=== PATIENT | female | born 1970 | race Caucasian/White ===

== ENCOUNTER 2023-07-11 09:25 | Emergency (ER) | payer OTHER, SELFPAY ==
[2023-07-11 09:33] VITALS: BP 159/100; PULSE 89; RESP 16; TEMP 36.8; O2SAT 96; BMI 39.2
--- NOTE | 2023-07-11 09:38 | XR_ITS ---
[facility] [place] [id number] Patient Name: DESTINY NAVARRO MRN: [id number] date: 1970 Sex: F Assigned Patient Location: ER Current Patient Location: ER Accession/Order Number: [id number] Exam Date: 07/11/2023 09:42 Report Date: 07/11/2023 10:03 At the request of: JERRY ROLLINS Procedure: XR knee RT 3V EXAM: XR knee RT 3V HISTORY: Right knee pain; technologist notes state atraumatic anterior and medial right knee pain since last night. COMPARISON: None. TECHNIQUE: AP, lateral and oblique views of the right knee performed. FINDINGS: The bony alignment and mineralization are within normal limits. There is no fracture. There is no osseous destruction or periostitis. Mild degenerative changes lateral compartment of the femoral-tibial articulation with small marginal osteophyte. Moderate degenerative changes medial compartment of the femoral-tibial articulation with narrowing of the joint space and marginal osteophyte. Moderate degenerative changes at the patellofemoral articulation with joint space narrowing, marginal osteophyte posterior aspect of the patella and hypertrophic changes of the trochlea. Small enthesophytes at the patellar attachment of the quadriceps and patellar tendons. There is a moderately large joint effusion at the knee. There is no soft tissue abnormality. XR/XR knee RT 3V IMPRESSION: There is no acute process. There is no fracture. Tricompartmental degenerative changes as described in the body the report. Small patellar enthesophytes at the attachment of the quadriceps and patellar tendons. Moderately large joint effusion at the knee. Electronically authenticated by: GIGI ALEGRE Date: 07/11/2023 10:03
[2023-07-11 09:43] VITALS: O2SAT 98
--- NOTE | 2023-07-11 10:19 | ED.LOWEXI1 ---
HPI - Extremity Injury (Lower) General Chief Complaint: Extremity Injury, Lower Stated Complaint: LOWER EXTREMITY INJURY - R KNEE Time Seen by Provider: 07/11/23 10:19 Source: patient Mode of arrival: walk-in Limitations: no limitations History of Present Illness HPI Narrative: This document has been composed with a new electronic medical record and dragging voice recognition system. This document may not fully inaccurately reflect the entirety of the patient encounter.this patient's here with complaint of pain in her right knee. She has not had previous surgery on the knee. She says it cracks or pops and because of that she takes Osteo Bi-Flex. She has never seen an orthopedic doctor. She does not have a new injury or change in activity. No other joints are problematic swollen or tender. She's not been running a fever.does not have any other complaints today. She was seen by the nursing staff and triaged to x-ray Related Data Home Medications Medication Instructions Recorded Confirmed No Known Home Medications 07/11/23 07/11/23 Allergies Allergy/AdvReac Type Severity Reaction Status Date / Time No Known Drug Allergies Allergy Verified 07/11/23 09:33 PFSH PFSH Social History Smoking status: Never smoker Exam Narrative Exam Narrative: awake alert vital signs are stable she is afebrile. Problem focused examination. Extremities shows the right need to have a small amount of effusion. She does have no instability of the joint but has diffuse tenderness both medial lateral and with patellar ballottement. Neurovascular examination distal extremity is normal. There is no indication of skin cellulitis or infectious process. The quadriceps and the soft tissues distal to the knee are completely normal. There is no neuropathy at this time. Her other joints are asymptomatic. Constitutional Vital Signs, click to edit/add: Last Vital Signs Temp 98.2 F 07/11/23 09:33 Pulse 89 07/11/23 09:33 Resp 16 07/11/23 09:33 BP 159/100 H 07/11/23 09:33 Pulse Ox 98 07/11/23 09:43 O2 Del Method Room Air 07/11/23 09:43 Course Vital Signs Vital signs: Vital Signs Temperature 98.2 F 07/11/23 09:33 Pulse Rate 89 07/11/23 09:33 Respiratory Rate 16 07/11/23 09:33 Blood Pressure 159/100 H 07/11/23 09:33 Pulse Oximetry 96 07/11/23 09:33 Oxygen Delivery Method Room Air 07/11/23 09:33 Temperature 98.2 F 07/11/23 09:33 Pulse Rate 89 07/11/23 09:33 Respiratory Rate 16 07/11/23 09:33 Blood Pressure 159/100 H 07/11/23 09:33 Pulse Oximetry 98 07/11/23 09:43 Oxygen Delivery Method Room Air 07/11/23 09:43 MDM - Extremity Injury (Lower) MDM Narrative Medical decision making narrative: x-rays the knee confirm moderate degenerative changes and three compartments of the knee per the radiologist. No acute fractures are noted. At this stage would place her in an immobilizer revising ice anti-inflammatories. I do not need leading that she needs aspiration of the joint at this time. She was advised to follow-up with her local orthopedist at Center program. I will give her a work note for Thursday so she can be off this for at least 3-5 days Discharge Plan Discharge Chief Complaint: Extremity Injury, Lower Clinical Impression: Degenerative arthritis of right knee Patient Disposition: Home, Self-Care Time of Disposition Decision: 10:27 Prescriptions / Home Meds: No Action No Known Home Medications Additional Instructions: Anaprox/knee immobilizer/ice/follow-up with your network orthopedist next week/off work Thursday Stand Alone Forms: Portal Instructions Referrals: Physician,Non-Staff, MD [Primary Care Provider] - 1 week
== END 2023-07-11 11:08 | disposition home or self-care (01) ==
PROVIDERS: Emergency Provider Emergency Medicine Emergency Medical Services
DX: M17.11 Unilateral primary osteoarthritis, right knee (principal)
CPT/HCPCS: 73562; 99283

== ENCOUNTER 2025-02-13 11:25 | Outpatient (OUT) | payer OTHER, SELFPAY ==
[2025-02-13 12:07] LABS: Basophils Percent Auto 0.4 % (0.2-2.0); Eosinophils Absolute Auto 0.2 10^3/uL (0.0-0.7); Hemoglobin 14.1 g/dL (12.0-16.0); Immature Granulocytes Abs Auto 0.03 10^3/uL (0.00-0.03); Immature Granulocytes Pct Auto 0.4 % (0.0-0.5); Lymphocytes Absolute Auto 2.7 10^3/uL (1.2-3.8); Lymphocytes Percent Auto 36.2 % (20.5-60.0); Mean Corpuscular HGB Conc 35.3 g/dL (29.9-35.2); Mean Corpuscular Hemoglobin 30.3 pg (26.7-34.0); Mean Platelet Volume 9.3 fL (9.5-13.5); Monocytes Absolute Auto 0.4 10^3/uL (0.3-0.8); Monocytes Percent Auto 4.7 % (1.7-12.0); Neutrophils Absolute Auto 4.2 10^3/uL (1.4-6.5); Neutrophils Percent Auto 56.3 % (43.0-75.0); Platelet Count 315 10^3/uL (150-450); Red Blood Count 4.65 10^6/uL (4.20-5.40); Red Cell Distribution Width 11.7 % (11.0-15.0); White Blood Count 7.5 10^3/uL (4.0-11.0)
[2025-02-13 12:26] LABS: Estimated Average Glucose 194 mg/dL; Glycohemoglobin A1C 8.4 % (4.5-6.2)
[2025-02-13 12:30] LABS: Alanine Aminotransferase 20 U/L (14-59); Albumin Globulin Ratio 1.1; Albumin Level 3.6 g/dL (3.4-5.0); Alkaline Phosphatase 76 U/L (46-116); Anion Gap 10.5; Aspartate Amino Transferase 11 U/L (15-37); BUN Creatinine Ratio 9.2; Bilirubin Total 1.1 mg/dL (0.2-1.0); Calcium 9.3 mg/dL (8.5-10.1); Carbon Dioxide 32.2 mmol/L (21.0-32.0); Chloride 105 mmol/L (98-107); Chol HDL Ratio 5.5; Cholesterol 241 mg/dL (<=200); Estimated GFR (African America >60 (>=60 mL/min/1.73m^2); Estimated GFR (Non-African Ame >60 (>=60 mL/min/1.73m^2); Free T3 2.74 pg/mL (2.18-3.98); Globulin 3.3 g/dL; Glucose 133 mg/dL (74-106); HDL Cholesterol 44 mg/dL (40-60); Potassium 4.7 mmol/L (3.5-5.1); Sodium 143 mmol/L (136-145); Thyroid Stimulating Hormone 5.631 uIU/mL (0.358-3.740); Total Protein 6.9 g/dL (6.4-8.2); Triglycerides 190 mg/dL (<=150)
[2025-02-14 03:07] LABS: Insulin 11.8 uIU/mL (2.6-24.9)
[2025-02-14 14:09] LABS: Thyroglobulin Antibody 671.3 IU/mL (0.0-0.9); Thyroid Peroxidase (TPO) Ab 116 IU/mL (0-34)
[2025-02-14 15:34] LABS: Erythrocyte Sedimentation Rate 20 mm/hr (<=30)
== END 2025-02-13 11:26 | disposition home or self-care (01) ==
LOC: LAB 11:31
PROVIDERS: PCP Family Medicine; Visit Provider Family Medicine
DX: Z00.00 Encounter for general adult medical examination without abnormal findings (principal)
CPT/HCPCS: 36415; 80053; 80061; 83036; 83525; 84436; 84443; 84481; 85025; 85652; 86376; 86800

== ENCOUNTER 2025-02-16 18:19 | Inpatient (IN) | payer OTHER, SELFPAY ==
[2025-02-16] VITALS (10 sets, daily range): BP systolic 140–200; BP diastolic 85–116; PULSE 73–96; TEMP 36.8; O2SAT 90–99; BMI 38.7
--- OUTSIDE RECORDS SUMMARY | 2025-02-16 18:31 | XMS_ITS ---
Author Organization [facility] Care Team Providers Care Pipe Changer Name Role Phone NO PCP, NO PCP Primary Care Unavailable NO PCP, NO PCP Primary Care Unavailable Purpose PROBLEMS DATE TYPE CONDITION / CODE ATTENDING STATUS RADHA E 01/31/2025 Unknown Laceration witho ut foreign body of other part of head, initial encounter / S01.81XA(ICD-10) NA Active [facility] 01/31/2025 Unknown Facial Laceratio n / FREETEXT(AOF) NA Active [facility] 10/20/2024 Unknown Drug Test / UNK(Unknown) NA Acti ve [facility] PROCEDURES No Procedure Records Found VITAL SIGNS No Vital Signs Records Found RESULTS No Result Records Found ALLERGIES DATE TYPE / CODE NAME / CODE REACTION SEVERITY SOURCE Drug Class/049729691(SNO MED CT) NO KNOWN ALLERGIES [facility] ENCOUNTERS ADMIT/DISCHARGE ACCOUNT NUMBER ADMITTING ENCOUNTER CLASS LOCATION SOURCE 01/31/2025/ 5 [id number] Emergency Building:PFM_ EDRoom: H4Bed: H4 [facility] 10/20/2024/ 4 [id number] Emergency Building:PF_ ED [facility] FUNCTIONAL STATUS No Functional Status Records Found EQUIPMENT No Equipment Records Found PAYERS ENCOUNTER GUARANTOR PAYER SUBSCRIBER SOURCE 10/20/2024 DESTINY NAVARRODOB: [address] [address]Eve: (HP) Primary Insurance:[employer] Number: [id number] sunshine Date:2019-04-16 DESTINY APODACAB: [id number] [address] [address]Pal: (WP) [facility] SOCIAL HISTORY No Social History Records Found FAMILY HISTORY No Family History Records Found ADVANCE DIRECTIVES No Advanced Directives Records Found INFORMATION SOURCE DATE CREATED AUTHOR AUTHOR'S TRA [facility] 02/16/2025 [facility]
--- NOTE | 2025-02-16 18:34 | ED_ITS ---
HPI HPI - General Adult General Chief complaint: Dizziness Stated complaint: NAUSEA, DIZZINESS, HIGH BP Time Seen by Provider: 02/16/25 18:26 Source: patient Mode of arrival: Wheelchair Limitations: no limitations History of Present Illness HPI narrative: Patient is a 55-year-old female who presents to the emergency department for dizziness, nausea that started today. She describes a sensation of herself and the room spinning. She denies visual loss. She states she is more comfortable when her eyes are closed. She denies fevers. Her family member at bedside states that she was recently treated for influenza. She states she occasionally has nasal congestion in the mornings but has not had any persistent significant upper respiratory symptoms. No medications taken prior to arrival today. She states her blood pressure has been high today. She has had no vomiting or diarrhea. No chest pain or shortness of breath. No falls or injuries. She states she had a fall with a small laceration above her right eyebrow 2 weeks ago and was seen at the [place] emergency department. Her family member states that they put Steri-Strips on her forehead but they did not check check her . Related Data Home Medications ?Medication ?Instructions ?Recorded ?Confirmed No Known Home Medications 02/16/25 02/16/25 Allergies Allergy/AdvReac Type Severity Reaction Status Date / Time No Known Drug Allergies Allergy Verified 07/11/23 09:33 Opioid HPI Opioid Management Most Recent Opioid Data: Last Pain Scale 9 07/11/23 09:42 07/11/23 Review of Systems ROS Constitutional Denies: fever or chills Ears, nose, mouth, and throat Denies: throat pain or nasal congestion Respiratory Denies: shortness of breath Gastrointestinal Reports: nausea; Denies: vomiting Musculoskeletal Denies: back pain or neck pain Integumentary/Breast Denies: rash Neurological Reports: dizziness; Denies: headache, numbness in extremities or weakness in extremities Hematologic/Lymphatic Denies: easy bruising or easy bleeding PFSH PFSH Social History Smoking status: Never smoker Exam Narrative Exam Narrative: Gen.: Awake, alert, in no distress Head: Normocephalic, atraumatic ENT: Dry mucous membranes, bilateral TMs are clear Respiratory: No respiratory distress, lungs clear bilaterally Cardio: Regular rate and rhythm Gastrointestinal: Abdomen is soft, nondistended and nontender to palpation Extremities: Moves extremities equally Psych: Normal mood and affect Neuro: No focal neuro deficit Skin: Warm, dry, intact Constitutional Vital Signs, click to edit/add: Last Vital Signs Temp 98.2 F 02/16/25 18:28 Pulse 96 H 02/16/25 21:16 Resp 16 02/16/25 21:16 BP 143/87 H 02/16/25 21:16 Pulse Ox 96 02/16/25 21:16 O2 Del Method Room Air 02/16/25 18:46 Course Vital Signs Vital signs: Vital Signs Temperature 98.2 F 02/16/25 18:28 Pulse Rate 85 02/16/25 18:28 Respiratory Rate 18 02/16/25 18:28 Blood Pressure 178/98 H 02/16/25 18:28 Pulse Oximetry 99 02/16/25 18:28 Oxygen Delivery Method Room Air 02/16/25 18:28 Temperature 98.2 F 02/16/25 18:28 Pulse Rate 96 H 02/16/25 21:16 Respiratory Rate 16 02/16/25 21:16 Blood Pressure 143/87 H 02/16/25 21:16 Pulse Oximetry 96 02/16/25 21:16 Oxygen Delivery Method Room Air 02/16/25 18:46 Medical Decision Making MDM Narrative Medical decision making narrative: Patient was initially medicated with IV fluids, Solu-Medrol, Zofran, Antivert. She continued to have labile blood pressures and was given labetalol, Vasotec. Her blood pressure improved for a short period of time but worsened and she was given additional hydralazine in addition to Valium for continued dizziness. CT of the brain is unremarkable, EKG is also unremarkable and laboratory studies reviewed and noted showing possible mild dehydration. Lactic acid was elevated and will be repeated. On reevaluation by attending physician, blood pressure is 143/87, however the patient still feels significantly dizzy and she will be admitted for observation for management of her blood pressure and dizziness. She is stable at this time. SHARED APC VISIT, PHYSICIAN ATTESTATION: [id number] I performed a substantive part of the MDM during the patient?s E/M visit. I personally evaluated and examined the patient. I personally made or approved the documented management plan and acknowledge its risk of complications. Medical Records Medical records reviewed: Yes I reviewed the patient's medical records Lab Data Lab results reviewed: Yes I reviewed the patient's lab results Labs: Lab Results 02/16/25 02/16/25 Range/Units 18:42 18:49 WBC 11.2 H (4.0-11.0) 10^3/uL RBC 5.03 (4.20-5.40) 10^6/uL Hgb 15.1 (12.0-16.0) g/dL Hct 43.4 (36.0-48.0) % MCV 86.3 (81.0-99.0) fL MCH 30.0 (26.7-34.0) pg MCHC 34.8 (29.9-35.2) g/dL RDW 11.8 (11.0-15.0) % Plt Count 350 (150-450) 10^3/uL MPV 9.6 (9.5-13.5) fL Neut % (Auto) 73.5 (43.0-75.0) % Lymph % (Auto) 21.6 (20.5-60.0) % [place] % (Auto) 3.9 (1.7-12.0) % Eos % (Auto) 0.4 L (0.9-7.0) % Baso % (Auto) 0.2 (0.2-2.0) % Neut # (Auto) 8.2 H (1.4-6.5) 10^3/uL Lymph # (Auto) 2.4 (1.2-3.8) 10^3/uL [place] # (Auto) 0.4 (0.3-0.8) 10^3/uL Eos # (Auto) 0.1 (0.0-0.7) 10^3/uL Baso # (Auto) 0.0 (0.0-0.1) 10^3/uL Abs Immat Gran (auto) 0.04 H (0.00-0.03) 10^3/uL Imm/Tot Granulo (auto) 0.4 (0.0-0.5) % PT 10.9 (9.0-11.6) sec INR 1.03 Sodium 138 (136-145) mmol/L Potassium 4.5 (3.5-5.1) mmol/L Chloride 98 (98-107) mmol/L Carbon Dioxide 29.1 (21.0-32.0) mmol/L Anion Gap 15.4 BUN 14.0 (7.0-18.0) mg/dL Creatinine 0.81 (0.55-1.02) mg/dL Est GFR ( Amer) >60 (>=60 mL/min/1.73m^2) Est GFR (Non-Af Amer) >60 (>=60 mL/min/1.73m^2) BUN/Creatinine Ratio 17.3 Glucose 213 H (74-106) mg/dL Lactate 2.9 H* (0.4-2.0) mmol/L Calcium 9.3 (8.5-10.1) mg/dL Magnesium 1.6 L (1.8-2.4) mg/dL Total Bilirubin 1.3 H (0.2-1.0) mg/dL AST 24 (15-37) U/L ALT 24 (14-59) U/L Alkaline Phosphatase 84 (46-116) U/L Troponin I High Sens <4.0 L (4.0-51.3) pg/mL Total Protein 7.6 (6.4-8.2) g/dL Albumin 3.8 (3.4-5.0) g/dL Globulin 3.8 g/dL Albumin/Globulin Ratio 1.0 TSH 3.709 (0.358-3.740) uIU/mL Urine Color Lt. yellow (YELLOW) Urine Clarity Clear (CLEAR) Urine pH 7.0 (5.0-9.0) Ur Specific [place] 1.020 (1.005-1.025) Urine Protein 30 A (NEG/TRACE) mg/dL Urine Glucose (UA) Negative (NEGATIVE) mg/dL Urine Ketones 40 A (NEGATIVE) mg/dL Urine Occult Blood Negative (NEGATIVE) Urine Nitrite Negative (NEGATIVE) Urine Bilirubin Negative (NEGATIVE) Urine Urobilinogen 0.2 (0.2-1.0) EU/dL Ur Leukocyte Esterase Negative (NEGATIVE) Urine RBC None seen (0-2) #/HPF Urine WBC 2-5 A (NONE SEEN) #/HPF Ur Squamous Epith Cells Few A (NONE/RARE) #/LPF Urine Crystals None seen (None Seen) #/HPF Urine Bacteria Trace A (NONE SEEN) #/HPF Urine Casts None seen (NONE SEEN) #/LPF Urine Mucus None seen (NONE SEEN) Ur Culture Indicated? No Imaging Data CT scan - head: Attestation: I have reviewed the pertinent imaging results. ECG Data Attestation: I personally reviewed and interpreted this ECG as follows: (Normal sinus rhythm at a rate of 80, no acute ST elevation or ectopy. EKG reviewed by attending physician) Discharge Plan Discharge Chief Complaint: Dizziness Clinical Impression: Dizziness, Hypertension, Nausea Patient Disposition: Admitted as Observation Time of Disposition Decision: 21:28 Condition: Good
[2025-02-16 19:08] LABS: Basophils Percent Auto 0.2 % (0.2-2.0); Eosinophils Absolute Auto 0.1 10^3/uL (0.0-0.7); Eosinophils Percent Auto 0.4 % (0.9-7.0); Hematocrit 43.4 % (36.0-48.0); Hemoglobin 15.1 g/dL (12.0-16.0); Immature Granulocytes Abs Auto 0.04 10^3/uL (0.00-0.03); Immature Granulocytes Pct Auto 0.4 % (0.0-0.5); Lymphocytes Absolute Auto 2.4 10^3/uL (1.2-3.8); Lymphocytes Percent Auto 21.6 % (20.5-60.0); Mean Corpuscular HGB Conc 34.8 g/dL (29.9-35.2); Mean Corpuscular Volume 86.3 fL (81.0-99.0); Mean Platelet Volume 9.6 fL (9.5-13.5); Monocytes Absolute Auto 0.4 10^3/uL (0.3-0.8); Monocytes Percent Auto 3.9 % (1.7-12.0); Neutrophils Absolute Auto 8.2 10^3/uL (1.4-6.5); Neutrophils Percent Auto 73.5 % (43.0-75.0); Platelet Count 350 10^3/uL (150-450); Red Blood Count 5.03 10^6/uL (4.20-5.40); Red Cell Distribution Width 11.8 % (11.0-15.0); White Blood Count 11.2 10^3/uL (4.0-11.0)
[2025-02-16] MEDS: METHYLPREDNISOLONE SOD SUCC PF 125 MG/2 ML VIAL IVP (19:09)
[2025-02-16] MEDS: ONDANSETRON PF 4 MG/2 ML VIAL IV ×2 (19:09→22:17)
[2025-02-16] MEDS: MECLIZINE HCL 12.5 MG TABLET 25 MG PO (19:10)
[2025-02-16] MEDS: 0.9 % SODIUM CHLORIDE 1,000 ML 999 ML IV (19:11)
[2025-02-16 19:15] LABS: Bilirubin Urine NEGATIVE (NEGATIVE); Blood Urine NEGATIVE (NEGATIVE); Clarity Urine CLEAR (CLEAR); Color Urine LT. YELLOW (YELLOW); Glucose Urine UA NEGATIVE (NEGATIVE); Ketones Urine 40 mg/dL (NEGATIVE); Leukocyte Esterase Urine NEGATIVE (NEGATIVE); Nitrite Urine NEGATIVE (NEGATIVE); Protein Urine 30 mg/dL (NEG/TRACE); Urobilinogen Urine 0.2 EU/dL (0.2-1.0)
[2025-02-16 19:18] LABS: Bacteria Urine TRACE #/HPF (NONE SEEN); Cast Seen? NONE SEEN #/LPF (NONE SEEN); Crystals Seen? None Seen #/HPF (None Seen); Mucus Urine NONE SEEN (NONE SEEN); RBC Urine NONE SEEN #/HPF (0-2); Squamous Epithelial Cell Urine FEW #/LPF (NONE/RARE); Urine Culture Indicated NO
[2025-02-16 19:20] LABS: INR 1.03; Prothrombin Time 10.9 sec (9.0-11.6)
[2025-02-16 19:32] LABS: Alanine Aminotransferase 24 U/L (14-59); Albumin Level 3.8 g/dL (3.4-5.0); Alkaline Phosphatase 84 U/L (46-116); Anion Gap 15.4; Aspartate Amino Transferase 24 U/L (15-37); BUN Creatinine Ratio 17.3; Bilirubin Total 1.3 mg/dL (0.2-1.0); Calcium 9.3 mg/dL (8.5-10.1); Carbon Dioxide 29.1 mmol/L (21.0-32.0); Chloride 98 mmol/L (98-107); Estimated GFR (African America >60 (>=60 mL/min/1.73m^2); Estimated GFR (Non-African Ame >60 (>=60 mL/min/1.73m^2); Globulin 3.8 g/dL; Glucose 213 mg/dL (74-106); Magnesium 1.6 mg/dL (1.8-2.4); Potassium 4.5 mmol/L (3.5-5.1); Sodium 138 mmol/L (136-145); Thyroid Stimulating Hormone 3.709 uIU/mL (0.358-3.740); Total Protein 7.6 g/dL (6.4-8.2); Troponin I High Sensitivity <4.0 pg/mL (4.0-51.3)
[2025-02-16 19:38] LABS: Lactate/Lactic Acid 2.9 mmol/L (0.4-2.0)
[2025-02-16] MEDS: ENALAPRILAT DIHYDRATE 1.25 MG/ML VIAL IV (19:41)
[2025-02-16] MEDS: LABETALOL HCL 20 MG/4 ML SYRINGE IVP (19:41)
[2025-02-16] MEDS: DIAZEPAM 10 MG/2 ML SYRINGE 5 MG IV ×2 (20:41→22:17)
[2025-02-16] MEDS: HYDRALAZINE HCL 20 MG/ML VIAL IVP (20:41)
[2025-02-16 22:04] LABS: Lactate/Lactic Acid 2.5 mmol/L (0.4-2.0)
[2025-02-16] MEDS: 0.9 % SODIUM CHLORIDE 1,000 ML 75 ML IV (22:16)
--- OUTSIDE RECORDS SUMMARY | 2025-02-16 22:50 | XMS_ITS ---
Author Organization [facility] Care Team Providers Care Sourcing Consultant Name Role Phone NO PCP, NO PCP Primary Care Unavailable NO PCP, NO PCP Primary Care Unavailable Purpose PROBLEMS DATE TYPE CONDITION / CODE ATTENDING STATUS RADHA E 01/31/2025 Unknown Laceration witho ut foreign body of other part of head, initial encounter / S01.81XA(ICD-10) NA Active [facility] 01/31/2025 Unknown Facial Laceratio n / FREETEXT(AOF) NA Active [facility] 10/20/2024 Unknown Drug Test / UNK(Unknown) NA Acti ve [facility] PROCEDURES No Procedure Records Found VITAL SIGNS No Vital Signs Records Found RESULTS No Result Records Found ALLERGIES DATE TYPE / CODE NAME / CODE REACTION SEVERITY SOURCE Drug Class/[id number](SNO MED CT) NO KNOWN ALLERGIES [facility] ENCOUNTERS ADMIT/DISCHARGE ACCOUNT NUMBER ADMITTING ENCOUNTER CLASS LOCATION SOURCE 01/31/2025/ 5 [id number] Emergency Building:PFM_ EDRoom: H4Bed: H4 [facility] 10/20/2024/ 4 [id number] Emergency Building:PF_ ED [facility] FUNCTIONAL STATUS No Functional Status Records Found EQUIPMENT No Equipment Records Found PAYERS ENCOUNTER GUARANTOR PAYER SUBSCRIBER SOURCE 10/20/2024 DESTINY NAVARRODOB: [address] [address]Hmm: (HP) Primary Insurance:Savv[employer]ary Number: [id number] sunshine Date:2019-04-16 DESTINY APODACAB: [id number] [address] [address]Pvz: (WP) [facility] SOCIAL HISTORY No Social History Records Found FAMILY HISTORY No Family History Records Found ADVANCE DIRECTIVES No Advanced Directives Records Found INFORMATION SOURCE DATE CREATED AUTHOR AUTHOR'S TRA [facility] 02/16/2025 [facility]
[2025-02-17] VITALS (21 sets, daily range): BP systolic 101–176; BP diastolic 5–92; PULSE 58–110; TEMP 36.6–37; O2SAT 91–97
[2025-02-17] MEDS: DIAZEPAM 10 MG/2 ML SYRINGE 2.5 MG IV (04:18)
[2025-02-17] MEDS: ONDANSETRON PF 4 MG/2 ML VIAL IV ×3 (04:18→18:52)
[2025-02-17 06:17] LABS: Hematocrit 41.1 % (36.0-48.0); Mean Corpuscular HGB Conc 34.1 g/dL (29.9-35.2); Mean Corpuscular Hemoglobin 29.7 pg (26.7-34.0); Mean Corpuscular Volume 87.1 fL (81.0-99.0); Mean Platelet Volume 9.6 fL (9.5-13.5); Platelet Count 301 10^3/uL (150-450); Red Blood Count 4.72 10^6/uL (4.20-5.40); Red Cell Distribution Width 11.8 % (11.0-15.0)
[2025-02-17 06:29] LABS: Anion Gap 18.4; BUN Creatinine Ratio 20.6; Calcium 8.8 mg/dL (8.5-10.1); Carbon Dioxide 23.1 mmol/L (21.0-32.0); Chloride 100 mmol/L (98-107); Estimated GFR (African America >60 (>=60 mL/min/1.73m^2); Estimated GFR (Non-African Ame 56 (>=60 mL/min/1.73m^2); Glucose 358 mg/dL (74-106); Potassium 4.5 mmol/L (3.5-5.1); Sodium 137 mmol/L (136-145)
--- NOTE | 2025-02-17 08:32 | P.HP_ITS ---
HPI H&P: HPI History of Present Illness Chief complaint: NAUSEA, DIZZINESS, HIGH BP Narrative: Patient with a head injury about a couple weeks ago, started having increasing nausea vomiting and vertigo, presented emergency room, CT scan was negative, also had hypertensive urgency with blood pressure systolic over 200, given IV medications for the blood pressure, IV medications for the vertigo with some improvement but not enough that she could not ambulate safely and was admitted to observation When I saw patient up in the medical surgical floor, resting in bed, fairly uncomfortable as long she does not move her head she is stable, but with any head movement has dizziness and nausea Opioid HPI Opioid Management Most Recent Pain and Opioid Data: Last Pain Scale 6 02/17/25 08:06 02/17/25 Last Pain Assessment 02/17/25 08:06 Last ORT Total Score 0 02/16/25 22:50 02/16/25 Last ORT Risk Category Low Risk 02/16/25 22:50 02/16/25 Review of Systems ROS Status of ROS 10 or more systems reviewed and unremark able except as noted in history and below PFSH PFS Medical History (Updated 02/16/25 @ 21:33 by Samy Qiu) Colitis ?K52.9 - Noninfective gastroenteritis and colitis, unspecified (ICD-10) Asthma ?J45.909 - Unspecified asthma, uncomplicated (ICD-10) Hypothyroid ?E03.9 - Hypothyroidism, unspecified (ICD-10) Social History Smoking status: Never smoker Highest level of school completed/degree received: Associate degree: occupational, technical, vocational program Little interest or pleasure in doing things: not at all Feeling down, depressed, or hopeless: not at all Meds Home Medications and Allergies Home Medications ?Medication ?Instructions ?Recorded ?Confirmed ?Type No Known Home Medications 02/16/25 02/16/25 History Allergies Allergy/AdvReac Type Severity Reaction Status Date / Time No Known Drug Allergies Allergy Verified 07/11/23 09:33 Exam Constitutional Vital Signs, click to edit/add: Last Vital Signs Temp 98.3 F 02/17/25 07:47 Pulse 110 H 02/17/25 08:00 Resp 18 02/17/25 07:47 BP 156/78 H 02/17/25 07:47 Pulse Ox 93 L 02/17/25 08:00 O2 Del Method Room Air 02/17/25 08:00 Documenting provider has reviewed patient's vital signs: yes Common normals: no apparent distress Respiratory Common normals: normal respiratory effort and no retractions Cardio Common normals: regular rate and regular rhythm GI Common normals: negative for Normal to inspection, nondistended, normoactive bowel sounds present (Morbid obesity) Neuro Common normals: oriented x3 and CN's II-XII intact bilaterally Other: Nystagmus on bilateral conjugate gaze Results Labs Labs: Short CBC 02/16/25 02/17/25 Range/Units 18:42 05:40 WBC 11.2 H 10.0 (4.0-11.0) 10^3/uL Hgb 15.1 14.0 (12.0-16.0) g/dL Hct 43.4 41.1 (36.0-48.0) % Plt Count 350 301 (150-450) 10^3/uL BMP 02/16/25 02/17/25 18:42 05:40 Sodium 138 137 Potassium 4.5 4.5 Chloride 98 100 Carbon Dioxide 29.1 23.1 BUN 14.0 21.0 H Creatinine 0.81 1.02 Glucose 213 H 358 H Calcium 9.3 8.8 Liver Function 02/16/25 Range/Units 18:42 Total Bilirubin 1.3 H (0.2-1.0) mg/dL AST 24 (15-37) U/L ALT 24 (14-59) U/L Alkaline Phosphatase 84 (46-116) U/L Albumin 3.8 (3.4-5.0) g/dL Urine 02/16/25 Range/Units 18:49 Urine Color Lt. yellow (YELLOW) Urine Clarity Clear (CLEAR) Urine pH 7.0 (5.0-9.0) Ur Specific [place] 1.020 (1.005-1.025) Urine Protein 30 A (NEG/TRACE) mg/dL Urine Glucose (UA) Negative (NEGATIVE) mg/dL Assessment and Plan Assessment and Plan (1) Nausea: (2) Hypertension: (3) Dizziness: Plan Admission findings: Tachycardia, hypertensive urgency, mild leukocytosis with lactic acidosis secondary to benign positional vertigo Benign positional vertigo-give meclizine [id number], start prednisone and oral antibiotics, have physical therapy work with patient, if improved this afternoon possible discharge to home and follow-up with me in the office later next week medications see list Hypertensive urgency-she does not take any blood pressure medicine at home but will start some now metoprolol 25 mg twice daily Lactic acidosis-given fluids overnight, suspect secondary to the above Admission status: Patient placed in observation status overnight, medically necessary treatment likely to only span 1 midnight, maintain observation status, if patient is improved later today should be discharged to home in improving condition. Medications see list. See me in the office next week.
--- NOTE | 2025-02-17 08:32 | PM.DS1 ---
DS: Providers Provider Date of admission: 02/16/25 22:43 Primary care physician: Zach Alvarez MD Consults: 02/17/25 07:37 Consult to Pharmacy Routine Consulting Provider: Reason for consultation: Please [place] me when Med Rec is Updated Has provider been notified: No Occupational Therapy Eval and Treat Routine Reason for consultation: Only if needed for Rehab Has provider been notified: No Physical Therapy Eval and Treat Routine Reason for consultation: Halpike Maneuvers? Has provider been notified: No DS: Summary Time Spent with Patient Time attestation: Total time spent providing and/or coordinating discharge services: Exam Constitutional Vital Signs, click to edit/add: Last Vital Signs Temp 98.3 F 02/17/25 07:47 Pulse 110 H 02/17/25 08:00 Resp 18 02/17/25 07:47 BP 156/78 H 02/17/25 07:47 Pulse Ox 93 L 02/17/25 08:00 O2 Del Method Room Air 02/17/25 08:00 DS: Data Data Completed and Pending Labs on day of discharge: Labs from last 24 hours 02/17/25 02/16/25 02/16/25 05:40 21:39 18:49 WBC 10.0 RBC 4.72 Hgb 14.0 Hct 41.1 MCV 87.1 MCH 29.7 MCHC 34.1 RDW 11.8 Plt Count 301 MPV 9.6 Neut % (Auto) Lymph % (Auto) [place] % (Auto) Eos % (Auto) Baso % (Auto) Neut # (Auto) Lymph # (Auto) [place] # (Auto) Eos # (Auto) Baso # (Auto) Abs Immat Gran (auto) Imm/Tot Granulo (auto) PT INR Sodium 137 Potassium 4.5 Chloride 100 Carbon Dioxide 23.1 Anion Gap 18.4 BUN 21.0 H Creatinine 1.02 Est GFR ( Amer) >60 Est GFR (Non-Af Amer) 56 L BUN/Creatinine Ratio 20.6 Glucose 358 H Lactate 2.5 H* Calcium 8.8 Magnesium Total Bilirubin AST ALT Alkaline Phosphatase Troponin I High Sens Total Protein Albumin Globulin Albumin/Globulin Ratio TSH Urine Color Lt. yellow Urine Clarity Clear Urine pH 7.0 Ur Specific [place] 1.020 Urine Protein 30 A Urine Glucose (UA) Negative Urine Ketones 40 A Urine Occult Blood Negative Urine Nitrite Negative Urine Bilirubin Negative Urine Urobilinogen 0.2 Ur Leukocyte Esterase Negative Urine RBC None seen Urine WBC 2-5 A Ur Squamous Epith Cells Few A Urine Crystals None seen Urine Bacteria Trace A Urine Casts None seen Urine Mucus None seen Ur Culture Indicated? No 02/16/25 18:42 WBC 11.2 H RBC 5.03 Hgb 15.1 Hct 43.4 MCV 86.3 MCH 30.0 MCHC 34.8 RDW 11.8 Plt Count 350 MPV 9.6 Neut % (Auto) 73.5 Lymph % (Auto) 21.6 [place] % (Auto) 3.9 Eos % (Auto) 0.4 L Baso % (Auto) 0.2 Neut # (Auto) 8.2 H Lymph # (Auto) 2.4 [place] # (Auto) 0.4 Eos # (Auto) 0.1 Baso # (Auto) 0.0 Abs Immat Gran (auto) 0.04 H Imm/Tot Granulo (auto) 0.4 PT 10.9 INR 1.03 Sodium 138 Potassium 4.5 Chloride 98 Carbon Dioxide 29.1 Anion Gap 15.4 BUN 14.0 Creatinine 0.81 Est GFR ( Amer) >60 Est GFR (Non-Af Amer) >60 BUN/Creatinine Ratio 17.3 Glucose 213 H Lactate 2.9 H* Calcium 9.3 Magnesium 1.6 L Total Bilirubin 1.3 H AST 24 ALT 24 Alkaline Phosphatase 84 Troponin I High Sens <4.0 L Total Protein 7.6 Albumin 3.8 Globulin 3.8 Albumin/Globulin Ratio 1.0 TSH 3.709 Urine Color Urine Clarity Urine pH Ur Specific [place] Urine Protein Urine Glucose (UA) Urine Ketones Urine Occult Blood Urine Nitrite Urine Bilirubin Urine Urobilinogen Ur Leukocyte Esterase Urine RBC Urine WBC Ur Squamous Epith Cells Urine Crystals Urine Bacteria Urine Casts Urine Mucus Ur Culture Indicated? Discharge Plan Discharge Condition: Good Discharge Medications: No Action No Known Home Medications Print Language: Turkmen
[2025-02-17] MEDS: CIPROFLOXACIN HCL 500 MG TABLET PO ×2 (08:57→20:26)
[2025-02-17] MEDS: PREDNISONE 20 MG TABLET 40 MG PO (08:57)
[2025-02-17] MEDS: MECLIZINE HCL 12.5 MG TABLET 25 MG PO ×3 (08:57→20:20)
[2025-02-17] MEDS: METOPROLOL TARTRATE 25 MG TABLET PO ×2 (08:57→20:20)
[2025-02-17] MEDS: HYOSCYAMINE SULFATE 0.125 MG TAB.SUBL SL (08:57)
[2025-02-17] MEDS: ACETAMINOPHEN 500 MG TABLET 1000 MG PO ×2 (08:58→18:51)
[2025-02-17] MEDS: CALCIUM CARBONATE 500 MG (200MG ELEMENTAL) TAB CHEW PO ×4 (09:07→20:21)
[2025-02-17] MEDS: ORPHENADRINE 60 MG/2 ML VIAL IV ×2 (09:07→20:21)
[2025-02-17] MEDS: PANTOPRAZOLE SODIUM 40 MG VIAL IV (09:07)
[2025-02-17 11:27] LABS: Glucometer 256 mg/dL (74-106)
[2025-02-17] MEDS: HYDRALAZINE HCL 20 MG/ML VIAL 10 MG IVP (12:06)
[2025-02-17] MEDS: INSULIN ASPART 300 UNIT/3 ML PEN SUBQ ×3 (12:07→21:24)
[2025-02-17 15:33] LABS: Glucometer 294 mg/dL (74-106)
--- NOTE | 2025-02-17 16:19 | SWNOTE1 ---
SW checked PT note, but pt continuing to have dizziness and not able to participate at this time.
[2025-02-17 20:01] LABS: Glucometer 275 mg/dL (74-106)
[2025-02-17] MEDS: PROCHLORPERAZINE 10 MG/2 ML VIAL IV (20:21)
[2025-02-18] VITALS (23 sets, daily range): BP systolic 101–137; BP diastolic 65–87; PULSE 64–92; TEMP 36.2–36.7; O2SAT 93–95
[2025-02-18] MEDS: CALCIUM CARBONATE 500 MG (200MG ELEMENTAL) TAB CHEW PO ×6 (05:12→23:57)
[2025-02-18] MEDS: MECLIZINE HCL 12.5 MG TABLET 25 MG PO ×4 (05:12→23:57)
[2025-02-18 08:01] LABS: Glucometer 144 mg/dL (74-106)
--- NOTE | 2025-02-18 08:57 | P.DS_ITS ---
DS: Providers Provider Date of admission: 02/16/25 22:43 Primary care physician: Zach Alvarez MD Consults: 02/17/25 07:37 Consult to Pharmacy Routine Consulting Provider: Reason for consultation: Please [place] me when Med Rec is Updated Has provider been notified: No Occupational Therapy Eval and Treat Routine Reason for consultation: Only if needed for Rehab Has provider been notified: No Physical Therapy Eval and Treat Routine Reason for consultation: Halpike Maneuvers? Has provider been notified: No DS: Diagnosis Discharge Diagnosis (1) Nausea: (2) Hypertension: (3) Dizziness: DS: Summary Time Spent with Patient Time attestation: Total time spent providing and/or coordinating discharge services: Exam Constitutional Vital Signs, click to edit/add: Last Vital Signs Temp 97.7 F 02/18/25 07:40 Pulse 68 02/18/25 08:00 Resp 18 02/18/25 07:40 BP 137/82 02/18/25 07:40 Pulse Ox 94 L 02/18/25 07:40 O2 Del Method Room Air 02/18/25 07:40 DS: Data Data Completed and Pending Labs on day of discharge: Labs from last 24 hours 02/18/25 02/17/25 02/17/25 08:01 19:56 15:29 POC Glucose 144 H 275 H 294 H 02/17/25 11:24 POC Glucose 256 H Discharge Plan Discharge Condition: Good Discharge Medications: No Action No Known Home Medications Print Language: Sami
[2025-02-18] MEDS: INSULIN ASPART 300 UNIT/3 ML PEN SUBQ ×4 (09:08→22:17)
[2025-02-18] MEDS: PANTOPRAZOLE SODIUM 40 MG VIAL IV (09:09)
[2025-02-18] MEDS: PREDNISONE 20 MG TABLET 40 MG PO (09:09)
[2025-02-18] MEDS: METOPROLOL TARTRATE 25 MG TABLET PO ×2 (09:10→22:15)
[2025-02-18] MEDS: ORPHENADRINE 60 MG/2 ML VIAL IV ×2 (09:10→22:16)
[2025-02-18] MEDS: CIPROFLOXACIN HCL 500 MG TABLET PO ×2 (09:17→22:15)
[2025-02-18 09:33] LABS: Basophils Percent Auto 0.1 % (0.2-2.0); Eosinophils Percent Auto 0.3 % (0.9-7.0); Hematocrit 38.9 % (36.0-48.0); Immature Granulocytes Abs Auto 0.03 10^3/uL (0.00-0.03); Immature Granulocytes Pct Auto 0.2 % (0.0-0.5); Lymphocytes Absolute Auto 3.3 10^3/uL (1.2-3.8); Lymphocytes Percent Auto 27.5 % (20.5-60.0); Mean Corpuscular HGB Conc 33.4 g/dL (29.9-35.2); Mean Corpuscular Hemoglobin 30.2 pg (26.7-34.0); Mean Corpuscular Volume 90.3 fL (81.0-99.0); Mean Platelet Volume 9.3 fL (9.5-13.5); Monocytes Absolute Auto 0.6 10^3/uL (0.3-0.8); Monocytes Percent Auto 4.7 % (1.7-12.0); Neutrophils Absolute Auto 8.1 10^3/uL (1.4-6.5); Neutrophils Percent Auto 67.2 % (43.0-75.0); Platelet Count 266 10^3/uL (150-450); Red Blood Count 4.31 10^6/uL (4.20-5.40); Red Cell Distribution Width 12.2 % (11.0-15.0)
[2025-02-18 09:53] LABS: Alanine Aminotransferase 16 U/L (14-59); Albumin Level 3.3 g/dL (3.4-5.0); Alkaline Phosphatase 63 U/L (46-116); Anion Gap 14.6; Aspartate Amino Transferase 10 U/L (15-37); BUN Creatinine Ratio 26.8; Calcium 9.3 mg/dL (8.5-10.1); Carbon Dioxide 27.7 mmol/L (21.0-32.0); Chloride 106 mmol/L (98-107); Estimated GFR (African America >60 (>=60 mL/min/1.73m^2); Estimated GFR (Non-African Ame >60 (>=60 mL/min/1.73m^2); Globulin 3.2 g/dL; Glucose 146 mg/dL (74-106); Potassium 4.3 mmol/L (3.5-5.1); Sodium 144 mmol/L (136-145); Total Protein 6.5 g/dL (6.4-8.2)
[2025-02-18] MEDS: ACETAMINOPHEN 500 MG TABLET 1000 MG PO (10:05)
--- NOTE | 2025-02-18 11:04 | PT.DAILY ---
Physical Therapy Daily Note PT Daily Note/Assess Start: 02/18/25 10:42 Freq: Status: Active Protocol: Document 02/18/25 10:43 [id number] (Rec: 02/18/25 11:04 [id number]) Physical Therapy Daily Note/Assessment Time In/Time Out Time In 09:25 Time Out 09:53 Pain In Pain Level 5 Pain Out Pain Level 6 Subjective Subjective Patient received supine in bed. States her dizziness is not to bad since she has not really been moving. But when she tilted her head back to swallow meds she could feel the dizziness, but it is not as intense as it was yesterday. States her CRUZ is 5/10. Patient reports when she gets up to go to the bathroom the dizziness becomes more and has to hold on to staff or furniture. Patient requests to use bathroom. Therapeutic Activity Time Therapeutic Activity 8 Minutes (minutes) Therapeutic Activity 1 Units Therapeutic Activity Treatment Bed Mobility Ability Minimum Assist Chair Transfer Minimum Assist Ability Therapeutic Activity Bed mobility: supine to L side lying to sit with use of Comments L bed rail is MIN A +1. Patient verbalizes increased dizziness with mobility. Patient sat EOB ~2 minutes with DAGMAR UE support to allow dizziness to decrease in intensity. Sit to stand transfer: MIN A+1 due to dizziness. Patient ambulated ~15 feet to bathroom with POSTULANT and reaching to wall for support. Patient is SBA for stand to commode. Patient is independent in toileting and cleaning hands. Patient ambulated ~15 feet to sitting EOB. Post Hugo, patient performed sit to stand with POSTULANT patient ambulated ~4 feet to chair at beside, DAGMAR LE elevated, CBWR and all post treatment needs met. Patient states her dizziness is somewhat less, but CRUZ is increased to 6/10. Neuromuscular Reeducation Neuromuscular 19 Reeducation Minutes (minutes) Neuromuscular 1 Reeducation Units Neuromuscular Patient positioned in long seated position and Hugo Reeducation performed to the R. Patient reports increased symptoms with transfer from sitting to supine with head to the R . Hugo maneuver completed with patient reporting less symptoms when positioned onto L side and into sitting. Patient sat EOB ~2 minutes after Hugo. Patient transferred into standing and walked around bed with POSTULANT ~8 feet. Patient seated on bed in long seated position and Hugo maneuver to the R performed again. Patient reports same level of intensity when transitioned from long seated to supine with head turned to R, when rest of Hugo performed patient states intensity of symptoms less than first time. Patient sat EOB ~2 minutes after Hugo. Total Physical Therapy Time Total Therapy 27 Minutes Total Physical 2 Therapy Units Summary Daily Note Summary Patient verbalizes intensity of symptoms with the transitioning from long seated to supine with R cervical rotation is the same, when rolling through Hugo the intensity was slightly less the second time. Reports continued dizziness and postural instability when ambulating to bathroom. Patient would benefit from possible PT to assist with return to PLOF.
[2025-02-18] MEDS: FLUTICASONE PROPIONATE 50 MCG NASAL SPRAY 2 SPRAY NS (11:35)
[2025-02-18 11:58] LABS: Glucometer 252 mg/dL (74-106)
--- NOTE | 2025-02-18 13:52 | PM.PN ---
Progress Note: Subjective Subjective Interval history: patient reports that she feels better but still dizzy with the slightest head movements. BP has been more controlled today. She recently had influenza A. some nasal congestion. Dr. Alvarez started her on meclizine, prednisone, cipro yesterday. Her BP was also elevated and metoprolol 25mg BID was started. BP doing well. I have added flonase. Patient also notes her ha1c was 8.1 and with the addition of prednisone her sugars here have been 200-300's so has been receiving SSI. She does not take anything for diabetes at home. She sleeps on the 2nd floor and bathroom is downstairs. She is worried that she would fall down the stairs if she was to go home. Exam Narrative Exam Narrative: General: Patient is alert, and oriented to person, place and time with normal affect, proper hygiene Skin: no visible rashes, or ulcers Head: atraumatic, acephalic Eyes: PERRLA, no nystagmus present, conjunctiva clear, no scleral icterus Ears: normal gross auditory acuity Heart: Normal rate and rhythm, no murmurs/rubs/gallops Lungs: no audible wheezes, crackles and normal breath sounds all lung gutierrez Musculoskeletal: no swelling bilateral lower extremities Neuro: CN II-X grossly intact Constitutional Vital Signs, click to edit/add: Last Vital Signs Temp 97.8 F 02/18/25 11:31 Pulse 68 02/18/25 11:53 Resp 16 02/18/25 11:31 BP 135/86 02/18/25 11:31 Pulse Ox 94 L 02/18/25 11:31 O2 Del Method Room Air 02/18/25 11:31 Progress Note: Objective Labs Labs: Short CBC 02/18/25 Range/Units 09:25 WBC 12.0 H (4.0-11.0) 10^3/uL Hgb 13.0 (12.0-16.0) g/dL Hct 38.9 (36.0-48.0) % Plt Count 266 (150-450) 10^3/uL BMP 02/18/25 09:25 Sodium 144 Potassium 4.3 Chloride 106 Carbon Dioxide 27.7 BUN 22.0 H Creatinine 0.82 Glucose 146 H Calcium 9.3 Liver Function 02/18/25 Range/Units 09:25 Total Bilirubin 1.0 (0.2-1.0) mg/dL AST 10 L (15-37) U/L ALT 16 (14-59) U/L Alkaline Phosphatase 63 (46-116) U/L Albumin 3.3 L (3.4-5.0) g/dL Progress Note: A&P Assessment and Plan (1) Benign paroxysmal positional vertigo, bilateral: Assessment and Plan: continue meclizine, zofran, will try dose of Valium today to see if this helps. PT did see her today and attempt head/ear manuver's. Symptoms improving but not gone. continue prednisone and Cipro. Added flonase (2) Accelerated hypertension: Assessment and Plan: continue metoprolol and as needed hydralazine (3) Acute sinusitis: Assessment and Plan: recent influenza A with URI symptoms. Qualifiers: Sinusitis location: unspecified location Recurrence: non-recurrent Qualified Code(s): J01.90 - Acute sinusitis, unspecified (4) Hyperglycemia due to type 2 diabetes mellitus: Assessment and Plan: continue SSI, Start Lantus 10units tonight. Qualifiers: Diabetes mellitus ad terminal makeup operator insulin use: without ad terminal makeup operator use Qualified Code(s): E11.65 - Type 2 diabetes mellitus with hyperglycemia Plan Patient is a full code Patient is improving, but slowly. Hopeful discharge later this evening.
[2025-02-18] MEDS: LORAZEPAM 2 MG/ML VIAL 1 MG IV (14:56)
[2025-02-18 16:00] LABS: Glucometer 271 mg/dL (74-106)
[2025-02-18] MEDS: INSULIN GLARGINE 300 UNIT/3 ML INSULN.PEN 10 UNIT SQ (18:02)
[2025-02-18 20:41] LABS: Glucometer 202 mg/dL (74-106)
[2025-02-19] VITALS (10 sets, daily range): BP systolic 142–156; BP diastolic 83–94; PULSE 64–76; TEMP 36.5–36.7; O2SAT 93–96
[2025-02-19] MEDS: MECLIZINE HCL 12.5 MG TABLET 25 MG PO ×2 (05:31→11:19)
[2025-02-19] MEDS: CALCIUM CARBONATE 500 MG (200MG ELEMENTAL) TAB CHEW PO ×3 (05:31→11:40)
[2025-02-19 06:51] LABS: Basophils Percent Auto 0.3 % (0.2-2.0); Eosinophils Absolute Auto 0.1 10^3/uL (0.0-0.7); Eosinophils Percent Auto 0.5 % (0.9-7.0); Hematocrit 37.7 % (36.0-48.0); Hemoglobin 12.4 g/dL (12.0-16.0); Immature Granulocytes Abs Auto 0.04 10^3/uL (0.00-0.03); Immature Granulocytes Pct Auto 0.4 % (0.0-0.5); Lymphocytes Absolute Auto 4.1 10^3/uL (1.2-3.8); Lymphocytes Percent Auto 39.8 % (20.5-60.0); Mean Corpuscular HGB Conc 32.9 g/dL (29.9-35.2); Mean Corpuscular Hemoglobin 29.9 pg (26.7-34.0); Mean Corpuscular Volume 90.8 fL (81.0-99.0); Mean Platelet Volume 9.9 fL (9.5-13.5); Monocytes Absolute Auto 0.6 10^3/uL (0.3-0.8); Monocytes Percent Auto 5.7 % (1.7-12.0); Neutrophils Absolute Auto 5.4 10^3/uL (1.4-6.5); Neutrophils Percent Auto 53.3 % (43.0-75.0); Platelet Count 223 10^3/uL (150-450); Red Blood Count 4.15 10^6/uL (4.20-5.40); Red Cell Distribution Width 11.9 % (11.0-15.0); White Blood Count 10.2 10^3/uL (4.0-11.0)
[2025-02-19 07:00] LABS: BUN Creatinine Ratio 36.7; Calcium 8.9 mg/dL (8.5-10.1); Carbon Dioxide 27.8 mmol/L (21.0-32.0); Chloride 105 mmol/L (98-107); Estimated GFR (African America >60 (>=60 mL/min/1.73m^2); Estimated GFR (Non-African Ame >60 (>=60 mL/min/1.73m^2); Glucose 186 mg/dL (74-106); Potassium 3.8 mmol/L (3.5-5.1); Sodium 142 mmol/L (136-145)
[2025-02-19 07:19] LABS: Glucometer 140 mg/dL (74-106)
--- NOTE | 2025-02-19 07:58 | PM.DS1 ---
DS: Providers Provider Date of admission: 02/16/25 22:43 Primary care physician: Zach Alvarez MD Attending physician on admission: Zach Alvarez Consults: 02/17/25 07:37 Consult to Pharmacy Routine Consulting Provider: Reason for consultation: Please [place] me when Med Rec is Updated Has provider been notified: No Occupational Therapy Eval and Treat Routine Reason for consultation: Only if needed for Rehab Has provider been notified: No Physical Therapy Eval and Treat Routine Reason for consultation: Halpike Maneuvers? Has provider been notified: No Discharging clinician: Julia Berry DS: Diagnosis Discharge Diagnosis (1) Benign paroxysmal positional vertigo, bilateral: (2) Accelerated hypertension: (3) Acute sinusitis: Qualifiers: Recurrence: non-recurrent Sinusitis location: unspecified location Qualified Code(s): J01.90 - Acute sinusitis, unspecified (4) Hyperglycemia due to type 2 diabetes mellitus: Qualifiers: Diabetes mellitus long-term insulin use: without long-term use Qualified Code(s): E11.65 - Type 2 diabetes mellitus with hyperglycemia DS: Summary Hospital Course Hospital Course: Patient with a head injury about a couple weeks ago, started having increasing nausea vomiting and vertigo, presented emergency room on 02/17/25, CT scan was negative, also had hypertensive urgency with blood pressure systolic over 200, given IV medications for the blood pressure, IV medications for the vertigo with some improvement but not enough that she could not ambulate safely and was admitted. Patient was started on metoprolol 25mg BID which seemed to stabilize her blood pressure and at the time of discharge was 140's/80's. She received several medications for Vertigo, but Meclizine, prednisone, flonase and cipro seemed to help and this will be continued as outpatient. Her vertigo has improved but not completely resolved. Discussed that she can discuss outpatient Vestibular therapy with Dr. Alvarez. Labs and vitals are stable. She plans to stay with her parents for awhile. I have given her a work note off until she can have her follow up appointment. I have given Rx for glucometer. She was requiring SSI while on the steroid. I have sent in Lantus 10units daily. It seems she has not seen or established with a doctor until recently so I discussed with her that there is alot of workup and more testing in her future for the diabetes, cholesterol, thyroid, etc. She may return to the ER with any worsening symptoms. Status at Discharge Functional status at discharge: independent ambulation Overall status at discharge: patient is progressing back to baseline Time Spent with Patient Time attestation: Total time spent providing and/or coordinating discharge services: Time spent: greater than 30 minutes Exam Narrative Exam Narrative: General: Patient is alert, and oriented to person, place and time with normal affect, proper hygiene Skin: no visible rashes, or ulcers Head: atraumatic, acephalic Eyes: PERRLA, no nystagmus present, conjunctiva clear, no scleral icterus Ears: normal gross auditory acuity Heart: Normal rate and rhythm, no murmurs/rubs/gallops Lungs: no audible wheezes, crackles and normal breath sounds all lung gutierrez Musculoskeletal: no swelling bilateral lower extremities Neuro: CN II-X grossly intact Constitutional Vital Signs, click to edit/add: Last Vital Signs Temp 98.1 F 02/19/25 07:45 Pulse 70 02/19/25 07:54 Resp 16 02/19/25 07:45 BP 142/83 H 02/19/25 07:45 Pulse Ox 96 02/19/25 07:45 O2 Del Method Room Air 02/19/25 07:45 DS: Data Data Completed and Pending Labs on day of discharge: Labs from last 24 hours 02/19/25 02/19/25 02/18/25 07:17 06:09 20:39 WBC 10.2 RBC 4.15 L Hgb 12.4 Hct 37.7 MCV 90.8 MCH 29.9 MCHC 32.9 RDW 11.9 Plt Count 223 MPV 9.9 Neut % (Auto) 53.3 Lymph % (Auto) 39.8 Leake % (Auto) 5.7 Eos % (Auto) 0.5 L Baso % (Auto) 0.3 Neut # (Auto) 5.4 Lymph # (Auto) 4.1 H Leake # (Auto) 0.6 Eos # (Auto) 0.1 Baso # (Auto) 0.0 Abs Immat Gran (auto) 0.04 H Imm/Tot Granulo (auto) 0.4 Sodium 142 Potassium 3.8 Chloride 105 Carbon Dioxide 27.8 Anion Gap 13.0 BUN 29.0 H Creatinine 0.79 Est GFR ( Amer) >60 Est GFR (Non-Af Amer) >60 BUN/Creatinine Ratio 36.7 Glucose 186 H Calcium 8.9 Total Bilirubin AST ALT Alkaline Phosphatase Total Protein Albumin Globulin Albumin/Globulin Ratio POC Glucose 140 H 202 H 02/18/25 02/18/25 02/18/25 15:58 11:57 09:25 WBC 12.0 H RBC 4.31 Hgb 13.0 Hct 38.9 MCV 90.3 MCH 30.2 MCHC 33.4 RDW 12.2 Plt Count 266 MPV 9.3 L Neut % (Auto) 67.2 Lymph % (Auto) 27.5 Leake % (Auto) 4.7 Eos % (Auto) 0.3 L Baso % (Auto) 0.1 L Neut # (Auto) 8.1 H Lymph # (Auto) 3.3 Leake # (Auto) 0.6 Eos # (Auto) 0.0 Baso # (Auto) 0.0 Abs Immat Gran (auto) 0.03 Imm/Tot Granulo (auto) 0.2 Sodium 144 Potassium 4.3 Chloride 106 Carbon Dioxide 27.7 Anion Gap 14.6 BUN 22.0 H Creatinine 0.82 Est GFR ( Amer) >60 Est GFR (Non-Af Amer) >60 BUN/Creatinine Ratio 26.8 Glucose 146 H Calcium 9.3 Total Bilirubin 1.0 AST 10 L ALT 16 Alkaline Phosphatase 63 Total Protein 6.5 Albumin 3.3 L Globulin 3.2 Albumin/Globulin Ratio 1.0 POC Glucose 271 H 252 H 02/18/25 08:01 WBC RBC Hgb Hct MCV MCH MCHC RDW Plt Count MPV Neut % (Auto) Lymph % (Auto) Leake % (Auto) Eos % (Auto) Baso % (Auto) Neut # (Auto) Lymph # (Auto) Leake # (Auto) Eos # (Auto) Baso # (Auto) Abs Immat Gran (auto) Imm/Tot Granulo (auto) Sodium Potassium Chloride Carbon Dioxide Anion Gap BUN Creatinine Est GFR ( Amer) Est GFR (Non-Af Amer) BUN/Creatinine Ratio Glucose Calcium Total Bilirubin AST ALT Alkaline Phosphatase Total Protein Albumin Globulin Albumin/Globulin Ratio POC Glucose 144 H Discharge Plan Discharge Disposition: Home, Self-Care Condition: Good Discharge Medications: New ciprofloxacin HCl 500 mg Tablet 500 mg PO BID 7 Days Qty: 14 0RF fluticasone propionate 50 mcg/actuation [place],Suspension 2 spray intranasal QD 30 Days Qty: 16 0RF prednisone 20 mg Tablet 40 mg PO QD 7 Days Qty: 14 0RF meclizine 12.5 mg Tablet 25 mg PO Q8H 7 Days Qty: 42 0RF metoprolol tartrate 25 mg Tablet 25 mg PO BID 30 Days Qty: 60 0RF insulin glargine [Lantus Solostar U-100 Insulin] 100 unit/mL (3 mL) Insulin Pen 10 unit subcut Q24H 30 Days Qty: 3 0RF Rx Instructions: Please dispense Pen needles to fit the Solostar pen for 30 day supply ondansetron HCl 4 mg tablet 4 mg PO Q8H PRN (Reason: nausea and vomiting) 4 Days Qty: 12 0RF Activity: increase activity as tolerated Diet: diabetic diet Diet Detail: I have hand written Rx for glucometer and test strips, please check sugars at least twice daily and bring log to PCP. Print Language: Colombian Patient Instructions: Ciprofloxacin (By mouth), Metoprolol (By mouth), Prednisone (By mouth), Meclizine (By mouth), Ondansetron (By mouth), Insulin Glargine (By injection), Fluticasone (Into the nose), Sinusitis (ED), Vertigo (DC), Acute Nausea and Vomiting (DC), Hypertension (DC), Diabetic Hyperglycemia (DC) Forms: Portal Instructions Follow Up Appointments: Please Call Dr. Alvarez's office Thursday to get hospital follow up appointment, discussed possible Vestibular Therapy as outpatient Given work note off until then
[2025-02-19] MEDS: FLUTICASONE PROPIONATE 50 MCG NASAL SPRAY 2 SPRAY NS (08:47)
[2025-02-19] MEDS: CIPROFLOXACIN HCL 500 MG TABLET PO (08:47)
[2025-02-19] MEDS: ORPHENADRINE 60 MG/2 ML VIAL IV (08:48)
[2025-02-19] MEDS: PREDNISONE 20 MG TABLET 40 MG PO (08:48)
[2025-02-19] MEDS: METOPROLOL TARTRATE 25 MG TABLET PO (08:48)
[2025-02-19] MEDS: PANTOPRAZOLE SODIUM 40 MG VIAL IV (09:34)
[2025-02-19] MEDS: INSULIN ASPART 300 UNIT/3 ML PEN SUBQ (11:21)
[2025-02-19 11:27] LABS: Glucometer 187 mg/dL (74-106)
--- OUTSIDE RECORDS SUMMARY | 2025-02-21 13:24 | XMS_ITS | CCD ---
Author Organization [facility] Informat ion Partnership [facility] Care Team Providers Care Post Office Manager Name Role Phone WEST, DR JASMINE Barriga Consulting Unavailable [facility] Primary Care Unava ilMARTINE Farfan Admitting Unavailable MARTINE SOL Attending Unavailable DR KYAW STATON Consulting Unavailable Arvind Contreras Consulting Unavailable MARTINE SOL Consulting Unavailable Donna CELERY TIER-CPriya Attending Unavail able Donna CELERY TIER-C, Priya Silva Primary Care Unavail able NO PCP, NO PCP Primary Care Unavailable NO PCP, NO PCP Primary Care Unavailable Allergies Allergy Classification Reported Allergen(s) Allergy Type Date of Onset Reaction(s) Facility (1 source) Hmg-Coa Reductase Inhibitors (Statins); Translations: [statins] Propensity to adverse reactions to drug (disorder) [facility] Repository Problems Active Problems Problem Classification Problem Date Documented Da te Episodic/Chronic Essential hypertension (1 source) Essential (primary) hypertension; Translations: [ESSENTIAL PRIMARY HYPERTENSION] Onset: 09-24-2020 Chronic Open wounds of head; neck; and trunk (2 sources) Laceration without foreign body of other part of head, initial encounter; Translations: [Facial laceration ] Onset: 01-31-2025 Episodic Thyroid disorders (1 source) Hypothyroidism, unspecified; Translations: [HYPOTHYROIDISM UNSPECIFIED] Onset: 09-24-2020 Chronic Unclassified (1 source) Drug Test Onset: 10-20-2024 Viral infection (1 source) COVID-19; Translations: [COVID-19] Onset: 09-24-2020 Past or Other Problems Problem Classification Problem Date Documented Da te Episodic/Chronic Conditions associated with dizziness or vertigo (1 source) Dizziness and giddiness; Translations: [DIZZINESS AND GIDDINESS] Onset: 09-24-2020 Episodic Malaise and fatigue (3 sources) Weakness; Translations: [WEAKNESS] Onset: 09-20-2020 Episodic Other connective tissue disease (1 source) Pain in left leg; Translations: [PAIN IN LEFT LEG] Onset: 09-24-2020 Episodic Other lower respiratory disease (1 source) Shortness of breath; Translations: [SHORTNESS OF BREATH] Onset: 09-24-2020 Episodic Other upper respiratory infections (1 source) Acute sinusitis, unspecified; Translations: [ACUTE SINUSITIS UNSPECIFIED] Onset: 09-24-2020 Episodic Pneumonia (except that caused by tuberculosis or sexually transmitted disease) (1 source) Pneumonia, unspecified organism; Translations: [PNEUMONIA UNSPECIFIED ORGANISM] Onset: 09-24-2020 Episodic Results Test Name Value Interpretation Reference Range Facility BNPon 09-20-2020 Natriuretic peptide B (Bld) [Mass/Vol] 119.0 pg/mL Normal <=900.0 [facility] Comment on above: Performed By: #### P TT, DDIM, PT #### [facility] [address] [place] [id number] Maame Bianca CBC AUTO DIFFon 09-20-2020 BASO # 0.0 103/ul Normal 0.0-0.1 [facility] Comment on above: Performed By: #### C BC #### [facility] [address] [place] [id number] Maame Bianca Basophils/100 WBC (Bld) 0.2 % Normal 0.2-2.0 [facility] Comment on above: Performed By: #### C BC #### [facility] [address] [place] [address] Maame Bianca EO # 0.1 103/ul Normal 0.0-0.7 [facility] Comment on above: Performed By: #### C BC #### [facility] [address] [id number] Maame Bianca Eosinophils/100 WBC (Bld) 1.2 % Normal 0.9-7.0 [facility] Comment on above: Performed By: #### C BC #### [facility] [address] [place] [address] Maame Bianca Erythrocyte distribution width (RBC) [Ratio] 11.5 % Normal 11.0-15.0 [facility] Comment on above: Performed By: #### C BC #### [facility] [address] [id number] Maame Bianca Hematocrit (Bld) [Volume fraction] 43.5 % Normal 36.0-48.0 [facility] Comment on above: Performed By: #### C BC #### [facility] [address] [place] [address] Maame Bianca Hemoglobin (Bld) [Mass/Vol] 14.5 g/dL Normal 12.0-16.0 [facility] Comment on above: Performed By: #### C BC #### [facility] [address] [place] [address] Maame Bianca IG # 0.01 10e3/ul Normal 0.00-0.03 [facility] Comment on above: Performed By: #### C BC #### [facility] [address] [place] [address] Maame Bianca IG % 0.2 % Normal 0.0-0.5 [facility] Comment on above: Performed By: #### C BC #### [facility] [address] [place] [address] Maame Bianca LYMPH # 1.7 103/ul Normal 1.2-3.8 [facility] Comment on above: Performed By: #### C BC #### [facility] [address] [place] [address] Maame Valenzuela Lymphocytes/100 WBC (Bld) 32.8 % Normal 20.5-60.0 [facility] Comment on above: Performed By: #### C BC #### [facility] [address] [place] [address] Maame Bianca MANUAL DIFF REQ NO Normal [facility] Comment on above: Performed By: #### C BC #### [facility] [address] [place], [place] [id number] Maame Bianca MCH (RBC) [Entitic mass] 30.3 pg Normal 26.7-34.0 [facility] Comment on above: Performed By: #### C BC #### [facility] [address] [id number] Maamedenise Valenzuela MCHC (RBC) [Mass/Vol] 33.3 g/dL Normal 29.9-35.2 [facility] Comment on above: Performed By: #### C BC #### [facility] [address] [place], [place] [id number] Maamedenise Valenzuela MCV (RBC) [Entitic vol] 90.8 fL Normal 81.0-99.0 [facility] Comment on above: Performed By: #### C BC #### [facility] [address] [place], [place] [id number] Maame Bianca MONO # 0.3 103/ul Normal 0.3-0.8 [facility] Comment on above: Performed By: #### C BC #### [facility] [address] [place], [place] [id number] Maame Bianca Monocytes/100 WBC (Bld) 6.5 % Normal 1.7-12.0 [facility] Comment on above: Performed By: #### C BC #### [facility] [address] [place] [address] Maame Bianca NEUT # 3.0 103/ul Normal 1.4-6.5 [facility] Comment on above: Performed By: #### C BC #### [facility] [address] [place], [place] [id number] Maame Bianca Neutrophils/100 WBC (Bld) 59.1 % Normal 43.0-75.0 [facility] Comment on above: Performed By: #### C BC #### [facility] [address] [place], [place] [id number] Maame Bianca Platelet mean volume (Bld) [Entitic vol] 9.4 fL Critically low 9.5-13.5 [facility] Comment on above: Performed By: #### C BC #### [facility] [address] [place], [place] [address] Maame Bianca PLT 210 103/ul Normal 150-450 [facility] Comment on above: Performed By: #### C BC #### [facility] [address] [place], [place] [address] Maame Bianca RBC 4.79 106/ul Normal 4.20-5.40 [facility] Comment on above: Performed By: #### C BC #### [facility] [address] [place], [place] [address] Maame Valenzuela WBC 5.1 103/ul Normal 4.0-11.0 [facility] Comment on above: Performed By: #### C BC #### [facility] [address] [place], [place] [address] HEAD WO CONon 09-20-[address] CT HEAD WO CON CT head without contrast CLINICAL: Headache. Symptoms for one week, worsening. TECHNIQUE: Contiguous transaxial images were obtained from skull base to vertex without administration of intravenous contrast. Dose reduction: mA and/or kV are were adjusted by automated exposure control software based upon patients height and weight. FINDINGS: There are no prior exams for comparison. There is no focal scalp soft tissue swelling or acute calvarial fracture. The visualized globes and orbits are grossly normal. There are small bilateral maxillary and sphenoid sinus air-fluid levels. There is also mild paranasal sinus mucosal thickening. Bilateral mastoid air cells are clear. The ventricles and sulci are normal and symmetric bilaterally. There is no intraparenchymal hemorrhage, extraaxial fluid collection, mass lesion, or acute large vessel ischemia by noncontrast CT. Cerebellar tonsils appear low-lying. However, the foramen magnum is incompletely included in the [id number]. IMPRESSION: 1. No acute intracranial hemorrhage or large vessel ischemia by noncontrast CT. 2. Low-lying cerebellar tonsils. If there is clinical suspicion for Chiari I malformation, dedicated brain MRI may be performed for further evaluation. 3. Small bilateral maxillary and sphenoid sinus air-fluid levels as can be seen in the setting of acute sinusitis. Correlate with patient's clinical symptoms. If the patient has a focal neurologic deficit or there is clinical suspicion for acute cerebrovascular accident, brain MRI would be recommended for further evaluation. Electronically authenticated by: ARVIND CONTRERAS Date: 2020-09-20 08:16 Normal [facility] CTA CHEST WO W CONon 020 CTA CHEST WO W CON EXAMINATION: CTA CHEST WO W CON HISTORY: SHORTNESS OF BREATH , congestion, fatigue COMPARISON: No relevant comparison available. TECHNIQUE: Multi-planar CT images were created with 100 mL Omnipaque 350 IV contrast. Axial, Coronal, and Sagittal images. Dose reduction techniques were achieved by using automated exposure control and/or adjustment of mA and/or kV according to patient size and/or use of iterative reconstruction technique. FINDINGS: VASCULATURE: No pulmonary embolism or abnormal opacity. LUNGS: Numerous 1 cm patchy opacities scattered throughout both lungs, with a few larger confluent opacities within the left lung base. PLEURA: No mass, effusion, or pneumothorax. ANNIE: Small lymph nodes bilaterally. MEDIASTINUM: Multiple small lymph nodes. CARDIAC: No enlargement, pericardial effusion, or pericardial thickening. AORTA: No aneurysm or dissection. CHEST WALL: No mass or axillary adenopathy. BONES: No bone lesion or fracture. LIMITED ABDOMEN: No suspicious findings. Limited images of the upper abdomen. OTHER: Negative. IMPRESSION: 1. No pulmonary embolism. 2. Numerous bilateral 1 cm patchy opacities; infectious infiltrate versus metastatic disease. Infectious infiltrate is favored. Follow-up imaging to document complete clearing is recommended. 3. Mild mediastinal and bilateral hilar lymphadenopathy. Electronically authenticated by: KYAW STATON Date: 2020-09-20 09:11 Normal [facility] D-DIMERon 09-20-2020 D-DIMER COMMENTS SEE BELOW Normal [facility] Comment on above: Result Comment: Incr eases in D-Dimer concentration observed with thromboembolic events can be variable due to localization, size, and age of the thrombus. Therefore, a thromboembolic event cannot be diagnosed with certainty on the basis of the reference range. D-Dimers may also be elevated for a variety of disorders including: advanced age, , coronary disease, cancer, liver disease, infection, inflammation, hematoma, DIC, trauma, post-surgery, diabetes, thrombolytic or anticoagulant therapy, stress, and generalizd hospitalization. Performed By: #### P TT, DDIM, PT #### [facility] [address] [address] Maame Valenzuela Fibrin D-dimer FEU IA (Bld) [Mass/Vol] 0.94 ug/mL Critically high 0.19-0.50 [facility] Comment on above: Result Comment: Test repeated. Critical value verified. Performed By: #### P TT, DDIM, PT #### [facility] [address] [id number] Maamedenise Beattyen PROF 14(COMP METB)on 020 Albumin [Mass/Vol] 3.6 g/dL Normal 3.5-5.0 [facility] Comment on above: Performed By: #### T ROP, BNP, CMP, TSH #### [facility] [address] [id number] Maame Bianca Albumin/Globulin [Mass ratio] 0.9 {ratio} Normal [facility] Comment on above: Performed By: #### T ROP, BNP, CMP, TSH #### [facility] [address] [address] Maame Bianca ALP [Catalytic activity/Vol] 92 U/L Normal 38-126 [facility] Comment on above: Performed By: #### T ROP, BNP, CMP, TSH #### [facility] [address] [place] [address] Maame Bianca ALT [Catalytic activity/Vol] 33 U/L Normal 9-52 [facility] Comment on above: Performed By: #### T ROP, BNP, CMP, TSH #### [facility] [address] [place], [place] [address] Maame Bianca Anion gap [Moles/Vol] 13.1 mmol/L Normal [facility] Comment on above: Performed By: #### T ROP, BNP, CMP, TSH #### [facility] [address] [place], [place] [address] Maame Bianca AST [Catalytic activity/Vol] 21 U/L Normal 14-36 [facility] Comment on above: Performed By: #### T ROP, BNP, CMP, TSH #### [facility] [address] [place], [place] [address] Maame Bianca Bilirubin [Mass/Vol] 0.9 mg/dL Normal 0.2-1.3 [facility] Comment on above: Performed By: #### T ROP, BNP, CMP, TSH #### [facility] [address] [place], [place] [address] Maame Bianca Calcium [Mass/Vol] 8.7 mg/dL Normal 8.4-10.2 [facility] Comment on above: Performed By: #### T ROP, BNP, CMP, TSH #### [facility] [address] [id number] Maame Bianca Chloride [Moles/Vol] 101 mmol/L Normal 98-107 [facility] Comment on above: Performed By: #### T ROP, BNP, CMP, TSH #### [facility] [address] [id number] Maame Bianca CO2 [Moles/Vol] 29.6 mmol/L Normal 22.0-30.0 [facility] Comment on above: Performed By: #### T ROP, BNP, CMP, TSH #### [facility] [address] [place] [address] Maame Bianca Creatinine [Mass/Vol] 0.69 mg/dL Normal 0.52-1.04 [facility] Comment on above: Performed By: #### T ROP, BNP, CMP, TSH #### [facility] [address] [place] [address] Maame Bianca EGFR-AF RWANDAN >60 Normal >=60 [facility] Comment on above: Performed By: #### T ROP, BNP, CMP, TSH #### [facility] [address] [place] [address] Maame Bianca EGFR-NON AF RWANDAN >60 Normal >=60 [facility] Comment on above: Performed By: #### T ROP, BNP, CMP, TSH #### [facility] [address] [place] [address] Maame Bianca Globulin (S) [Mass/Vol] 3.9 g/dL Normal [facility] Comment on above: Performed By: #### T ROP, BNP, CMP, TSH #### [facility] [address] [place], [place] [address] Maame Bianca Glucose [Mass/Vol] 189 mg/dL Critically high 74-106 [facility] Comment on above: Performed By: #### T ROP, BNP, CMP, TSH #### [facility] [address] [place] [address] Maame Bianca Potassium [Moles/Vol] 3.7 mmol/L Normal 3.4-5.0 [facility] Comment on above: Performed By: #### T ROP, BNP, CMP, TSH #### [facility] [address] [place] [address] Maame Bianca Protein [Mass/Vol] 7.5 g/dL Normal 6.1-8.2 [facility] Comment on above: Performed By: #### T ROP, BNP, CMP, TSH #### [facility] [address] [place] [address] Maame Bianca Sodium [Moles/Vol] 140 mmol/L Normal 137-145 [facility] Comment on above: Performed By: #### T ROP, BNP, CMP, TSH #### [facility] [address] [place] [address] Maame Bianca Urea nitrogen [Mass/Vol] 9.0 mg/dL Normal 7.0-17.0 [facility] Comment on above: Performed By: #### T ROP, BNP, CMP, TSH #### [facility] [address] [place] [address] Maame Bianca Urea nitrogen/Creatinin e [Mass ratio] 13.0 mg/mg Normal [facility] Comment on above: Performed By: #### T ROP, BNP, CMP, TSH #### [facility] [address] [place] [address] Maame Bianca PROTIMEon 09-20-2020 INR Coag (PPP) [Relative time] 0.96 {INR} Normal [facility] Comment on above: Performed By: #### P TT, DDIM, PT #### [facility] [address] [place] [address] Maame Bianca INR GUIDELINES SEE BELOW Normal [facility] Comment on above: Result Comment: RACHEL RED INR: 2.0 - 3.0 CONDITIONS NOT LISTED BELOW 2.5 - 3.5 FOR PROSTHETIC HEART VALVE REPLACEMENT 2.5 - 3.5 RECURRENT THROMBOSIS Performed By: #### P TT, DDIM, PT #### [facility] [address] [place] [address] Maame Bianca PT Coag (PPP) [Time] 10.2 s Normal 9.0-11.6 [facility] Comment on above: Performed By: #### P TT, DDIM, PT #### [facility] [address] [place] [address] Maame Valenzuela PT NORMAL PLEASE NOTE: NORMAL RANGE CHANGE 08-03-2014 DUE TO REAGENT LOT CHANGE Normal [facility] Comment on above: Performed By: #### P TT, DDIM, PT #### [facility] [address] [place] [address] Maame Valenzuela PTTon 09-20-2020 aPTT Coag (Bld) [Time] 27.1 s Normal 22.3-36.2 [facility] Comment on above: Performed By: #### P TT, DDIM, PT #### [facility] [address] [place] [address] Maame Valenzuela PTT NORMAL PLEASE NOTE: NORMAL RANGE CHANGE 10-10-2015 DUE TO REAGENT LOT CHANGE Normal [facility] Comment on above: Performed By: #### P TT, DDIM, PT #### [facility] [address] [place] [address] Maame Valenzuela Rapid Covid-19 PCRon 020 Honestly Now LDT Info SEE BELOW Normal [facility] Comment on above: Result Comment: This test is not yet approved or cleared by the [place] Food and Drug Administration (FDA) . This test was developed by [employer], [facility]. The performance characteristics of this test were validated by [facility]. The results are not intended to be used as the sole means for clinical diagnosis or patient management decisions. The [facility] is authorized under Clinical Laboratory Improvement Amendments (CLIA) to perform high-complexity testing. When diagnostic testing is negative, the possibility of a false negative should be considered in the context of a patients recent exposures and the presence of clinical signs and symptoms consistent with SARS-CoV-2. Performed By: #### P TT, DDIM, PT #### [facility] [address] [place] [address] Maame Valenzuela SARS-CoV-2 (COVID-19) RNA DERECK+probe Ql (Unsp spec) Detected Invalid Interpretation Code NOT DETECTED [facility] Comment on above: Result Comment: This test is not yet approved or cleared by the [place] Food and Drug Administration (FDA). This test was developed by [employer], [facility]. The performance characteristics of this test were validated by [facility]. The results are not intended to be used as the sole means for clinical diagnosis or patient management decisions. The [facility] is authorized under Clinical Laboratory Improvement Amendments (CLIA) to perform high-complexity testing. Performed By: #### P TT, DDIM, PT #### [facility] [address] [place] [address] TROPONIN - Ion 09-20-2020 TROP <0.012 Normal <=0.034 [facility] Comment on above: Performed By: #### P TT, DDIM, PT #### [facility] [address] [place] [address] Maame Bianca TROPONIN RANGE SEE BELOW Normal [facility] Comment on above: Result Comment: <0.0 34 ng/ml NEGATIVE 0.034-0.119 INDETERMINATE 0.120 AMI CUT OFF Performed By: #### P TT, DDIM, PT #### [facility] [address] [place] [address] Maame Valenzuela TSHon 09-20-2020 TSH 8.152 uIU/mL Critically high 0.470-4.680 [facility] Comment on above: Performed By: #### T ROP, BNP, CMP, TSH #### [facility] [address] [place], [place] [address] TSH RANGE SEE BELOW Normal [facility] Comment on above: Result Comment: <0.3 4 UIU/ml HYPERTHYROID 0.34-5.60 UIU/ml EUTHYROID >5.60 UIU/ml HYPOTHYROID Performed By: #### T ROP, BNP, CMP, TSH #### [facility] [address] [place] [address] Maame Bianca US TUSHAR DOP LEG LTon 09-20-20 20 US TUSHAR DOP LEG LT EXAMINATION: US TUSHAR DOP LEG LT HISTORY: D-dimer above reference range ; left leg pain COMPARISON: No relevant comparison available. FINDINGS: REGION: Left lower extremity THROMBI: None. COMPRESSIBILITY: Normal compressibility. FLOW: Normal waveform and antegrade flow between 5 and 20 cm/s. OTHER: None. IMPRESSION: 1. No deep vein thrombus within the left lower extremity. Electronically authenticated by: KYAW STATON Date: 2020-09-20 09:50 Normal [facility] XR CHEST 1 Von 09-20-2020 XR CHEST 1 V EXAMINATION: XR CHES T 1 V HISTORY: COUGH COMPARISON: No relevant comparison available. TECHNIQUE: AP portable erect FINDINGS: LUNGS: No significant pulmonary parenchymal abnormalities. VASCULATURE: No increased pulmonary vasculature. PLEURA: No pneumothorax, effusion, or pleural thickening. CARDIAC: No cardiomegaly or cardiac silhouette abnormality. MEDIASTINUM: No visible mass or adenopathy. BONES: No fracture or visible bone lesion. OTHER: EKG wires IMPRESSION: No acute disease. Electronically authenticated by: JASMINE WILKINSON Date: 2020-09-20 08:09 Normal [facility] Encounters Encounter Date Encounter Type Care Provider Facility Start: 01-31-2025 End: 01-31-2025 Emergency department patient visit NO PCP NO PCP [facility] Start: 10-20-2024 End: 10-20-2024 Emergency department patient visit NO PCP NO PCP [facility] Start: 09-20-2020 End: 09-20-[address] JASMINE WILKINSON Facility: Start: 02-09-2019 End: 02-09-2019 ambulatory Priya Thompson CELERY TIER-C Facility:[facility] Payers Date Payer Category Payer Private Health Insurance [id number] 2018 Self-pay ABC 2018 Private Health Insurance [id number] 1970 Unknown [id number] 1970 Unknown [id number] 1970 Unknown [id number] 1959 Private Health Insurance [id number] Summary Purpose Family History No Family History Records FoundNo Family History Records FoundNo Family History Records Found Advance Directives No Advanced Directives Records FoundNo Advanced Directives Records FoundNo Advanced Directives Records Found Additional Source Comments INFORMATION SOURCE (unrecogn ized section and content) DATE CREATED AUTHOR 03/08/2021 [facility] DATE CREATED AUTHOR AUTHOR'S ORGANIZ ATION 08/27/2024 [facility] DATE CREATED AUTHOR AUTHOR'S ORGANIZ ATION 02/03/2025 [facility] FOR RECORDS PERTAINING TO PATIENTS WHO ARE OR HAVE BEEN ENROLLED IN A CHEMICAL DEPENDENCY/SUBSTANCEABUSE PROGRAM, SOME INFORMATION MAY BE OMITTED. This clinical summary was aggregated from multiple sources. Caution should be exercised in using it in the provision of clinical care. This summary normalizes information from multiple sources, and as a consequence, information in this document may materially change the coding, format and clinical context of patient data. In addition, data may be omitted in some cases. CLINICAL DECISIONS SHOULD BE BASED ON THE PRIMARY CLINICAL RECORDS. [facility] [employer] [facility]. provides no warranty or guarantee of the accuracy or completeness of information in this document.
--- NOTE | 2025-02-21 14:30 | CM.DCFOLLOWU ---
Person spoke with:patient How are you feeling?well How is your pain?none Did you understand your discharge instructions?yes Do you have any questions about your discharge instructions?no Were you given any prescriptions at discharge?yes Were you able to get your prescriptions filled?yes Do you understand how to take your medications as ordered?yes, had apt with PCP and he switched meds around Do you have any questions about your follow up appointment and do you plan to keep your follow up appointment? no questions, had follow up with PCP today Is there anything else that you would like to discuss?no Questions/Comments/Concerns/Other: none
== END 2025-02-19 13:19 | disposition home or self-care (01) | DRG 149 ==
LOC: ER 21:28 → MS 02-17 17:42
PROVIDERS: Physician Assistant; Registered Nurse; Admitting Provider Family Medicine; Emergency Provider Emergency Medicine; PCP Family Medicine; Visit Provider Family Medicine
DX: H81.13 Benign paroxysmal vertigo, bilateral (principal); E87.20 Acidosis, unspecified; I16.0 Hypertensive urgency; I10 Essential (primary) hypertension; J01.90 Acute sinusitis, unspecified; E11.65 Type 2 diabetes mellitus with hyperglycemia; Z91.81 History of falling
CPT/HCPCS: 36415; 70450; 80048; 80053; 81001; 82948; 83605; 83735; 84443; 84484; 85025; 85027; 85610; 93005; 94761; 96361; 96374; 96375; 96376; 97112; 97161; 97530; 99285; G0378; J0360; J0780; J1920; J2060; J2360; J2405; J2919; J3360; J7512

== ENCOUNTER 2025-02-28 09:51 | Outpatient (OUT) | payer OTHER, SELFPAY ==
--- OUTSIDE RECORDS SUMMARY | 2025-02-28 10:00 | XMS_ITS | CCD ---
Author Organization [facility] Informat ion Partnership [facility] Care Team Providers Care Education Nurse Name Role Phone WEST, DR JASMINE Barriga Consulting Unavailable [facility] Primary Care Unava ilMARTINE Farfan Admitting Unavailable MARTINE SOL Attending Unavailable DR KYAW STATON Consulting Unavailable Arvind Contreras Consulting Unavailable MARTINE SOL Consulting Unavailable Donna MEDICATION ADMINISTRATION PROFESSIONAL-CPriay Attending Unavail able Donna MEDICATION ADMINISTRATION PROFESSIONAL-C, Priya Silva Primary Care Unavail able NO PCP, NO PCP Primary Care Unavailable NO PCP, NO PCP Primary Care Unavailable Allergies Allergy Classification Reported Allergen(s) Allergy Type Date of Onset Reaction(s) Facility (1 source) Hmg-Coa Reductase Inhibitors (Statins); Translations: [statins] Propensity to adverse reactions to drug (disorder) [facility] Repository Problems Active Problems Problem Classification [...] (Bld) [Mass/Vol] 119.0 pg/mL Normal <=900.0 [facility] Comment on above: Performed By: #### P TT, DDIM, PT #### [facility] [address] [place] [address] Maame Bianca CBC AUTO DIFFon 09-20-2020 BASO # 0.0 103/ul Normal 0.0-0.1 [facility] Comment on above: Performed By: #### C BC #### [facility] [address] [place] [address] Maame Bianca Basophils/100 WBC (Bld) 0.2 % Normal 0.2-2.0 [facility] Comment on above: Performed By: #### C BC #### [facility] [address] [place] [address] Maame Bianca EO # 0.1 103/ul Normal 0.0-0.7 [facility] Comment on above: Performed By: #### C BC #### [facility] [address] [phone] Maame Bianca Eosinophils/100 WBC (Bld) 1.2 % Normal 0.9-7.0 [facility] Comment on above: Performed By: #### C BC #### [facility] [address] [place] [address] Maame Bianca Erythrocyte distribution width (RBC) [Ratio] 11.5 % Normal 11.0-15.0 [facility] Comment on above: Performed By: #### C BC #### [facility] [address] [phone] Maame Bianca Hematocrit (Bld) [Volume fraction] 43.5 % Normal 36.0-48.0 [facility] Comment on above: Performed By: #### C BC #### [facility] [address] [place] [address] Maame Bianca Hemoglobin (Bld) [Mass/Vol] 14.5 g/dL Normal 12.0-16.0 [facility] Comment on above: Performed By: #### C BC #### [facility] [address] [place] [address] Maame Bianca IG # 0.01 10e3/ul Normal 0.00-0.03 [facility] Comment on above: Performed By: #### C BC #### [facility] [address] [place] [address] Maame Bianca IG % 0.2 % Normal 0.0-0.5 [facility] Comment on above: Performed By: #### C BC #### [facility] [address] [place] [address] Maame Bianca LYMPH # 1.7 103/ul Normal 1.2-3.8 [facility] Comment on above: Performed By: #### C BC #### [facility] [address] [place] [address] Maame Valenzuela Lymphocytes/100 WBC (Bld) 32.8 % Normal 20.5-60.0 [facility] Comment on above: Performed By: #### C BC #### [facility] [address] [place] [address] Maame Bianca MANUAL DIFF REQ NO Normal [facility] Comment on above: Performed By: #### C BC #### [facility] [address] [place], [place] [id number] Maame Bianca MCH (RBC) [Entitic mass] 30.3 pg Normal 26.7-34.0 [facility] Comment on above: Performed By: #### C BC #### [facility] [address] [phone] Maamedenise Valenzuela MCHC (RBC) [Mass/Vol] 33.3 g/dL Normal 29.9-35.2 [facility] Comment on above: Performed By: #### C BC #### [facility] [address] [place], [place] [phone] Maamedenise Valenzuela MCV (RBC) [Entitic vol] 90.8 fL Normal 81.0-99.0 [facility] Comment on above: Performed By: #### C BC #### [facility] [address] [place], [place] [phone] Maame Bianca MONO # 0.3 103/ul Normal 0.3-0.8 [facility] Comment on above: Performed By: #### C BC #### [facility] [address] [place], [place] [phone] Maame Bianca Monocytes/100 WBC (Bld) 6.5 % Normal 1.7-12.0 [facility] Comment on above: Performed By: #### C BC #### [facility] [address] [place] [address] Maame Bianca NEUT # 3.0 103/ul Normal 1.4-6.5 [facility] Comment on above: Performed By: #### C BC #### [facility] [address] [place], [place] [phone] Maame Bianca Neutrophils/100 WBC (Bld) 59.1 % Normal 43.0-75.0 [facility] Comment on above: Performed By: #### C BC #### [facility] [address] [place], [place] [phone] Maame Bianca Platelet mean volume (Bld) [Entitic vol] 9.4 fL Critically low 9.5-13.5 [facility] Comment on above: Performed By: #### C BC #### [facility] [address] [place], [place] [address] Maame Bianca PLT 210 103/ul Normal 150-450 [facility] Comment on above: Performed By: #### C BC #### [facility] [address] [place], [place] [phone] Maame Bianca RBC 4.79 106/ul Normal 4.20-5.40 [facility] Comment on above: Performed By: #### C BC #### [facility] [address] [place], [place] [address] Maame Valenzuela WBC 5.1 103/ul Normal 4.0-11.0 [facility] Comment on above: Performed By: #### C BC #### [facility] [address] [place], [place] [address] HEAD WO CONon 09-20-2020 [...] foramen magnum is incompletely included in the [id number]-[id number]. IMPRESSION: 1. No acute intracranial hemorrhage or [...] ARVIND CONTRERAS Date: 2020-09-20 08:16 Normal [facility] CTA CHEST WO W CONon 020 CTA [...] KYAW STATON Date: 2020-09-20 09:11 Normal [facility] D-DIMERon 09-20-2020 D-DIMER COMMENTS SEE BELOW Normal [facility] Comment on above: Result Comment: Incr [...] By: #### P TT, DDIM, PT #### [facility] [address] [address] Maame Valenzuela Fibrin D-dimer FEU IA (Bld) [Mass/Vol] 0.94 ug/mL Critically high 0.19-0.50 [facility] Comment on above: Result Comment: Test repeated. Critical value verified. Performed By: #### P TT, DDIM, PT #### [facility] [address] [phone] Maamedenise Beattyen PROF 14(COMP METB)on 020 Albumin [Mass/Vol] 3.6 g/dL Normal 3.5-5.0 [facility] Comment on above: Performed By: #### T ROP, BNP, CMP, TSH #### [facility] [address] [phone] Maame Bianca Albumin/Globulin [Mass ratio] 0.9 {ratio} Normal [facility] Comment on above: Performed By: #### T ROP, BNP, CMP, TSH #### [facility] [address] [address] Maame Bianca ALP [Catalytic activity/Vol] 92 U/L Normal 38-126 [facility] Comment on above: Performed By: #### T ROP, BNP, CMP, TSH #### [facility] [address] [place] [address] Maame Bianca ALT [Catalytic activity/Vol] 33 U/L Normal 9-52 [facility] Comment on above: Performed By: #### T ROP, BNP, CMP, TSH #### [facility] [address] [place], [place] [address] Maame Bianca Anion gap [Moles/Vol] 13.1 mmol/L Normal [facility] Comment on above: Performed By: #### T ROP, BNP, CMP, TSH #### [facility] [address] [place], [place] [address] Maame Bianca AST [Catalytic activity/Vol] 21 U/L Normal 14-36 [facility] Comment on above: Performed By: #### T ROP, BNP, CMP, TSH #### [facility] [address] [place], [place] [address] Maame Bianca Bilirubin [Mass/Vol] 0.9 mg/dL Normal 0.2-1.3 [facility] Comment on above: Performed By: #### T ROP, BNP, CMP, TSH #### [facility] [address] [place], [place] [address] Maame Bianca Calcium [Mass/Vol] 8.7 mg/dL Normal 8.4-10.2 [facility] Comment on above: Performed By: #### T ROP, BNP, CMP, TSH #### [facility] [address] [phone] Maame Bianca Chloride [Moles/Vol] 101 mmol/L Normal 98-107 [facility] Comment on above: Performed By: #### T ROP, BNP, CMP, TSH #### [facility] [address] [phone] Maame Bianca CO2 [Moles/Vol] 29.6 mmol/L Normal 22.0-30.0 [facility] Comment on above: Performed By: #### T ROP, BNP, CMP, TSH #### [facility] [address] [place] [address] Maame Bianca Creatinine [Mass/Vol] 0.69 mg/dL Normal 0.52-1.04 [facility] Comment on above: Performed By: #### T ROP, BNP, CMP, TSH #### [facility] [address] [place] [address] Maame Bianca EGFR-AF ZIMBABWEAN >60 Normal >=60 [facility] Comment on above: Performed By: #### T ROP, BNP, CMP, TSH #### [facility] [address] [place] [address] Maame Bianca EGFR-NON AF ZIMBABWEAN >60 Normal >=60 [facility] Comment on above: Performed By: #### T ROP, BNP, CMP, TSH #### [facility] [address] [place] [address] Maame Bianca Globulin (S) [Mass/Vol] 3.9 g/dL Normal [facility] Comment on above: Performed By: #### T ROP, BNP, CMP, TSH #### [facility] [address] [place], [place] [address] Maame Bianca Glucose [Mass/Vol] 189 mg/dL Critically high 74-106 [facility] Comment on above: Performed By: #### T ROP, BNP, CMP, TSH #### [facility] [address] [place] [address] Maame Bianca Potassium [Moles/Vol] 3.7 mmol/L Normal 3.4-5.0 [facility] Comment on above: Performed By: #### T ROP, BNP, CMP, TSH #### [facility] [address] [place] [address] Maame Bianca Protein [Mass/Vol] 7.5 g/dL Normal 6.1-8.2 [facility] Comment on above: Performed By: #### T ROP, BNP, CMP, TSH #### [facility] [address] [place] [address] Maame Bianca Sodium [Moles/Vol] 140 mmol/L Normal 137-145 [facility] Comment on above: Performed By: #### T ROP, BNP, CMP, TSH #### [facility] [address] [place] [address] Maame Bianca Urea nitrogen [Mass/Vol] 9.0 mg/dL Normal 7.0-17.0 [facility] Comment on above: Performed By: #### T ROP, BNP, CMP, TSH #### [facility] [address] [place] [address] Maame Bianca Urea nitrogen/Creatinin e [Mass ratio] 13.0 mg/mg Normal [facility] Comment on above: Performed By: #### T ROP, BNP, CMP, TSH #### [facility] [address] [place] [address] Maame Bianca PROTIMEon 09-20-2020 INR Coag (PPP) [Relative time] 0.96 {INR} Normal [facility] Comment on above: Performed By: #### P TT, DDIM, PT #### [facility] [address] [place] [address] Maame Bianca INR GUIDELINES SEE BELOW Normal [facility] Comment on above: Result Comment: RACHEL RED INR: 2.0 - 3.0 CONDITIONS NOT LISTED BELOW 2.5 - 3.5 FOR PROSTHETIC HEART VALVE REPLACEMENT 2.5 - 3.5 RECURRENT THROMBOSIS Performed By: #### P TT, DDIM, PT #### [facility] [address] [place] [address] Maame Bianca PT Coag (PPP) [Time] 10.2 s Normal 9.0-11.6 [facility] Comment on above: Performed By: #### P TT, DDIM, PT #### [facility] [address] [place] [address] Maame Valenzuela PT NORMAL PLEASE NOTE: NORMAL RANGE CHANGE 08-03-2014 DUE TO REAGENT LOT CHANGE Normal [facility] Comment on above: Performed By: #### P TT, DDIM, PT #### [facility] [address] [place] [address] Maame Valenzuela PTTon 09-20-2020 aPTT Coag (Bld) [Time] 27.1 s Normal 22.3-36.2 [facility] Comment on above: Performed By: #### P TT, DDIM, PT #### [facility] [address] [place] [address] Maame Valenzuela PTT NORMAL PLEASE NOTE: NORMAL RANGE CHANGE 10-10-2015 DUE TO REAGENT LOT CHANGE Normal [facility] Comment on above: Performed By: #### P TT, DDIM, PT #### [facility] [address] [place] [address] Maame Valenzuela Rapid Covid-19 PCRon 020 [employer] LDT Info SEE BELOW Normal [facility] Comment on above: Result Comment: This test is not yet approved or cleared by the [place] Food and Drug Administration (FDA) . This test was developed by [employer], [facility]. The performance characteristics of this test were validated by [facility]. The results are not intended to be used as the sole means for clinical diagnosis or patient management decisions. [facility] is authorized under Clinical Laboratory Improvement Amendments (CLIA) to perform high-complexity testing. When diagnostic testing is negative, the possibility of a false negative should be considered in the context of a patients recent exposures and the presence of clinical signs and symptoms consistent with SARS-CoV-2. Performed By: #### P TT, DDIM, PT #### [facility] [address] [place] [address] Maame Valenzuela SARS-CoV-2 (COVID-19) RNA DERECK+probe Ql (Unsp spec) Detected Invalid Interpretation Code NOT DETECTED [facility] Comment on above: Result Comment: This test is not yet approved or cleared by the [place] Food and Drug Administration (FDA). This test was developed by [employer], [facility]. The performance characteristics of this test were validated by [facility]. The results are not intended to be used as the sole means for clinical diagnosis or patient management decisions. [facility] is authorized under Clinical Laboratory Improvement Amendments (CLIA) to perform high-complexity testing. Performed By: #### P TT, DDIM, PT #### [facility] [address] [place] [address] TROPONIN - Ion 09-20-2020 TROP <0.012 Normal <=0.034 [facility] Comment on above: Performed By: #### P TT, DDIM, PT #### [facility] [address] [place] [address] Maame Bianca TROPONIN RANGE SEE BELOW Normal [facility] Comment on above: Result Comment: <0.0 34 ng/ml NEGATIVE 0.034-0.119 INDETERMINATE 0.120 AMI CUT OFF Performed By: #### P TT, DDIM, PT #### [facility] [address] [place] [address] Maame Valenzuela TSHon 09-20-2020 TSH 8.152 uIU/mL Critically high 0.470-4.680 [facility] Comment on above: Performed By: #### T ROP, BNP, CMP, TSH #### [facility] [address] [place], [place] [address] TSH RANGE SEE BELOW Normal [facility] Comment on above: Result Comment: <0.3 4 UIU/ml HYPERTHYROID 0.34-5.60 UIU/ml EUTHYROID >5.60 UIU/ml HYPOTHYROID Performed By: #### T ROP, BNP, CMP, TSH #### [facility] [address] [place] [address] Maame Bianca US TUSHAR DOP LEG LTon [...] by: KYAW STATON Date: 2020-09-20 09:50 Normal [facility] XR CHEST 1 Von 09-20-2020 XR [...] by: JASMINE WILKINSON Date: 2020-09-20 08:09 Normal [facility] Encounters Encounter Date Encounter Type Care Provider Facility Start: 01-31-2025 End: 01-31-2025 Emergency department patient visit NO PCP NO PCP [facility] Start: 10-20-2024 End: 10-20-2024 Emergency department patient visit NO PCP NO PCP [facility] Start: 09-20-2020 End: 09-20-[address] JASMINE WILKINSON Facility: Start: 02-09-2019 End: 02-09-2019 ambulatory Priya Thompson MEDICATION ADMINISTRATION PROFESSIONAL-C Facility:[facility] Payers Date Payer Category Payer Private Health Insurance [id number] 2018 Self-pay ABC 2018 Private Health Insurance [id number] 1970 Unknown [id number] 1970 Unknown [id number] 1970 Unknown [id number] 1959 Private Health Insurance [id number] Summary Purpose Family History No Family History Records FoundNo Family History Records FoundNo Family History Records Found Advance Directives No Advanced Directives Records FoundNo Advanced Directives Records FoundNo Advanced Directives Records Found Additional Source Comments INFORMATION SOURCE (unrecogn ized section and content) DATE CREATED AUTHOR 03/08/2021 [facility] DATE CREATED AUTHOR AUTHOR'S ORGANIZ ATION 08/27/2024 [facility] DATE CREATED AUTHOR AUTHOR'S ORGANIZ ATION 02/03/2025 [facility] FOR RECORDS PERTAINING TO PATIENTS WHO ARE [...] BE BASED ON THE PRIMARY CLINICAL RECORDS. [facility] [employer] [facility]. provides no warranty or guarantee of the accuracy or completeness of information in this document.
[2025-02-28 10:15] LABS: Basophils Percent Auto 0.3 % (0.2-2.0); Eosinophils Absolute Auto 0.1 10^3/uL (0.0-0.7); Hematocrit 39.6 % (36.0-48.0); Hemoglobin 13.2 g/dL (12.0-16.0); Immature Granulocytes Abs Auto 0.02 10^3/uL (0.00-0.03); Immature Granulocytes Pct Auto 0.3 % (0.0-0.5); Lymphocytes Absolute Auto 2.4 10^3/uL (1.2-3.8); Lymphocytes Percent Auto 34.6 % (20.5-60.0); Mean Corpuscular HGB Conc 33.3 g/dL (29.9-35.2); Mean Corpuscular Hemoglobin 29.7 pg (26.7-34.0); Mean Corpuscular Volume 89.2 fL (81.0-99.0); Mean Platelet Volume 9.7 fL (9.5-13.5); Monocytes Absolute Auto 0.4 10^3/uL (0.3-0.8); Monocytes Percent Auto 5.5 % (1.7-12.0); Neutrophils Percent Auto 57.3 % (43.0-75.0); Platelet Count 196 10^3/uL (150-450); Red Blood Count 4.44 10^6/uL (4.20-5.40); Red Cell Distribution Width 11.9 % (11.0-15.0)
[2025-02-28 11:05] LABS: Alanine Aminotransferase 26 U/L (14-59); Albumin Globulin Ratio 0.9; Albumin Level 3.1 g/dL (3.4-5.0); Alkaline Phosphatase 67 U/L (46-116); Anion Gap 11.5; Aspartate Amino Transferase 14 U/L (15-37); BUN Creatinine Ratio 15.6; Bilirubin Total 1.2 mg/dL (0.2-1.0); Calcium 8.8 mg/dL (8.5-10.1); Carbon Dioxide 29.8 mmol/L (21.0-32.0); Chloride 107 mmol/L (98-107); Estimated GFR (African America >60 (>=60 mL/min/1.73m^2); Estimated GFR (Non-African Ame >60 (>=60 mL/min/1.73m^2); Globulin 3.3 g/dL; Glucose 118 mg/dL (74-106); Potassium 4.3 mmol/L (3.5-5.1); Sodium 144 mmol/L (136-145); Thyroid Stimulating Hormone 6.488 uIU/mL (0.358-3.740); Total Protein 6.4 g/dL (6.4-8.2)
[2025-02-28 12:27] LABS: Free T4 0.98 ng/dL (0.76-1.46)
== END 2025-02-28 09:52 | disposition home or self-care (01) ==
LOC: LAB 09:52
PROVIDERS: PCP Family Medicine; Visit Provider Family Medicine
DX: R42 Dizziness and giddiness (principal)
CPT/HCPCS: 36415; 80053; 84439; 84443; 85025

== ENCOUNTER 2025-07-11 12:15 | Outpatient (OUT) | payer OTHER, SELFPAY ==
--- OUTSIDE RECORDS SUMMARY | 2008-05-03 04:54 | XMS_ITS | Continuity of Care Document ---
Author Organization [employer] [facility] Address [address] [place] [address] Phone Care Team Providers Care Endodontics Dentist Name Role Phone Marina Silver MD Unavailable Unavailab le Medications Medication Instructions Dosage Effective Dates (start - stop) Status Comments Synthroid 175 mcg Tab Take one tablet by mouth daily - Active ALBUTEROL 90 MCGAER REFILL 2 puffs qid prn - Active Prilosec OTC 20 mg Tab Take one tablet b y mouth daily - Active Zetia 10 mg Tab Take one tablet by mouth daily - Active Hydrochlorothiazide 25 mg Tab Take one tablet by mouth daily - Active Cortisporin 3.5 mg-10,000 unit/mL-1 % Ear Drops, Susp -4gtt in each ear tid for 1 week - Active Synthroid 175 mcg Tab Take one tablet by mouth daily - No Longer Active Procedures Procedure Date Office/outpatient visit,est, mod 2006 Office/outpatient visit,est, mod 2005 Office/outpatient visit,est, mod 2005 Infcts antign, streptococcus Grp A Office/outpatient visit,est, min 2005 Office/outpatient visit,est, mod 2005 Infcts antign, streptococcus Grp A Office/outpatient visit,est, mod 2004 Advance Directives Directive Yes / No Effective Date File Name No Information Encounters Encounter Description Practice Location Reason(s) For Visit Diagnoses Date Provider Providers Copied on Encounter [employer] [facility], [address], [place], [place], [id number] , [place] tel:[phone] Wan Gifford [facility] HYPOTHYROIDISM NOS 8 Adrianne Gray. [facility], [place], [place], [id number], . tel:[phone] [facility], [address] [place] [address] [address], [place], [place], [address] , tel: [phone] Wan Gifford [facility] No Information 8 Adrianne Gray. [facility], [place], [place], [id number], [place]. tel:[phone] [facility], [address] [place] [address] [address], [place], [place], [address] , tel:[phone] Wan Gifford [facility] No Information 8 Adrianne Gray. [facility] Gisell [address]ocha [address], [place], [place], [id number], [place]. tel:[phone] [facility], [address] [place] [address] [address], [place], [place], [address] , tel: [phone] [facility] Recall labwork (chief complaint) No Information 7 Adrianne Gray. [facility], [place], [place], [address], [place]. tel:[phone] Referring Provider: Marina Quintero, Rebel Waller, [place], [address] . tel:[phone] Office/outpa tient visit,est, [facility], [address] [place] [address] [address], [place], [place], [id number] , tel:[phone] [facility] BP up (chief complaint) BENIGN HYPERTENSIONHYPOTH YROIDISM NOSMIXED HYPERLIPIDEMIA 7 Adrianne Gray. [facility], [place], [id number], . tel:[phone] Referring Provider: Marina Quintero, Rebel Waller, [place], [address] . tel:[phone] [facility], [address] [place] [address] [address], [place], [place], [address] , tel:[phone] Wan Gifford [facility] cough (chief complaint) lab test (chief complaint) hypertensi on (chief complaint) No Information 6 Adrianne Gray. [facility], [place], [place], [address], [place]. tel:[phone] Referring Provider: Marina Quintero, Rebel Waller, [place], [address] . tel:[phone] Office/outpa tient visit,[facility], [address] [place] [address] [address], [place], [place], [address] , [place] tel:[phone] Wan Gifford [facility] school physical (chief complaint) BENIGN HYPERTENSIONHYPOTH YROIDISM NOSDEPRESSION 6 Hornorm Gray. [facility], [place], [id number], [place]. tel:[phone] Referring Provider: Marina Quintero, Rebel Rocha [address], [place], [address] . tel:[phone] Office/outpa tient visit,[facility], [address] [place] [address] [address], [place], [place], [address] , [place] tel:[phone] Wan Gifford [facility] cough (chief complaint) AC MAXILLARY SINUSITIS 6 Hornorm Gray. [facility], [place], [place], [id number], [place]. tel:[phone] Referring Provider: Marina Quintero, Rebel Waller, [place], [address] . tel:[phone] Office/outpa tient visit,[facility], [address] [place] [address] [address], [place], [place], [address] , [phone] Wan Gifford [facility] sore throat (chief complaint) No Information 1200 6 Adrianne Gray. Rebel Waller, [place], [place], [address], . tel:[phone] Referring Provider: Marina Quintero, Rebel Waller, [place], [address] . tel:[phone] Office/outpa tient visit,[facility], [address] [place] [address] [address], [place], [place], [address] , [phone] Wan Gifford [facility] sinus (chief complaint) ACUTE SINUSITIS NOSACUTE PHARYNGITIS 6 Adrianne Gray. Rebel Waller, [place], [place], [address], . tel:[phone] Referring Provider: Marina Quintero, Rebel Waller, [place], [address] . tel:[phone] Office/outpa tient visit,[facility] [email or web address] [facility], [address] [place] [address] [address], [place], [place], [address] , tel:[phone] Wan Gifford [facility] sinus (chief complaint) ACUTE SINUSITIS NOSBRONCHITIS NOS 0200 5 Adrianne Gray. Rebel Waller, [place], [place], [address], . tel:[phone] Referring Provider: Marina Quintero, Rebel Waller, [place], [address] . tel:[phone] Family History Family Member Type Diagnosis Age At Onset Mother Problem (finding) hypertension Father Problem (finding) raised blood lipids Father Problem (finding) GERD Mother Problem (finding) Arthritis Father Problem (finding) arthritis Mother Problem (finding) deafness Mother Problem (finding) von Willebrand's diseas e Mother Problem (finding) Thyroid disease Immunizations Vaccine Date Status Comments MMR administered Source: New Imm unization Record hep B (adult) administered Source: New Im munization Record Payers Payer name Insurance type Covered republican ID Authoriza tion(s) No Information Social History Type Description Quantity Date Captured Comments Sex Female Smoking Status No Information Chief Complaint And Reason For Visit No Information Reason For Referral Reason For Referral No Information Plan Of Treatment Date Type Action Status Goal TD Vaccine. Due on 08 due Goal PAP. Due on due Goal Breast exam. Due on 008 due Goal H&P. Due on due Goal CHECKER CASHIER exam. Due on due History Of Present Illness Encounter Date Complaint History Of Prese nt Illness No Information Functional Status Date Functional Assessmen t No Information Instructions Date Instruction Additional Infor mation Review medication side effects R elated to BENIGN HYPERTENSION Prescribe medications Related to BENIGN HYPERTENSION Review medication side effects R elated to AC MAXILLARY SINUSITIS Prescribe medications Related to AC MAXILLARY SINUSITIS Call if symptoms persist Related to ACUTE SINUSITIS NOS Review medication side effects R elated to ACUTE SINUSITIS NOS Prescribe medications Related to ACUTE SINUSITIS NOS Call if symptoms persist Related to ACUTE SINUSITIS NOS Prescribe medications Related to ACUTE SINUSITIS NOS Review medication side effects R elated to ACUTE SINUSITIS NOS Assessments Type Assessment Date No Information Patient Care Teams Name Effective Dates (start - stop) Status Members No Information
--- OUTSIDE RECORDS SUMMARY | 2025-07-11 12:21 | XMS_ITS | CCD ---
Author Organization [facility] Informat ion Partnership [facility] Care Team Providers Care Flute Teacher Name Role Phone JAJA, DR JASMINE Barriga Consulting Unavailable [facility] Primary Care Unava ilMARTINE Farfan Admitting Unavailable MARTINE SOL Attending Unavailable DR KYAW STATON Consulting Unavailable Arvind Contreras Consulting Unavailable MARTINE SOL Consulting Unavailable Donna TOW FEEDER-CPriya Attending Unavail able Donna TOW FEEDER-C, Priya Silva Primary Care Unavail able NO PCP, NO PCP Primary Care Unavailable NO PCP, NO PCP Primary Care Unavailable Allergies Allergy Classification Reported Allergen(s) Allergy Type Date of Onset Reaction(s) Facility (1 source) Hmg-Coa Reductase Inhibitors (Statins); Translations: [statins] Propensity to adverse reactions to drug (disorder) [facility] Repository Problems Active Problems Problem Classification [...] (Bld) [Mass/Vol] 119.0 pg/mL Normal <=900.0 [facility] Comment on above: Performed By: #### P TT, DDIM, PT #### [facility] [address] [place] [address] Maame Bianac CBC AUTO DIFFon 09-20-2020 BASO # 0.0 103/ul Normal 0.0-0.1 [facility] Comment on above: Performed By: #### C BC #### [facility] [address] [place] [address] Maame Bianca Basophils/100 WBC (Bld) 0.2 % Normal 0.2-2.0 [facility] Comment on above: Performed By: #### C BC #### [facility] [address] [place] [address]993 Maame Bianca EO # 0.1 103/ul Normal 0.0-0.7 [facility] Comment on above: Performed By: #### C BC #### [facility] [address] [id number] Maame Bianca Eosinophils/100 WBC (Bld) 1.2 % Normal 0.9-7.0 [facility] Comment on above: Performed By: #### C BC #### [facility] [address] [place] [address] Maame Bianca Erythrocyte distribution width (RBC) [Ratio] 11.5 % Normal 11.0-15.0 [facility] Comment on above: Performed By: #### C BC #### [facility] [address] [phone] Maame Bianca Hematocrit (Bld) [Volume fraction] 43.5 % Normal 36.0-48.0 [facility] Comment on above: Performed By: #### C BC #### [facility] [address] [place] [address] Maame Bianca Hemoglobin (Bld) [Mass/Vol] 14.5 g/dL Normal 12.0-16.0 [facility] Comment on above: Performed By: #### C BC #### [facility] [address] [place] [address] Maame Bianca IG # 0.01 10e3/ul Normal 0.00-0.03 [facility] Comment on above: Performed By: #### C BC #### [facility] [address] [place] [address] Maame Bianca IG % 0.2 % Normal 0.0-0.5 [facility] Comment on above: Performed By: #### C BC #### [facility] [address] [place] [address] Maame Bianca LYMPH # 1.7 103/ul Normal 1.2-3.8 [facility] Comment on above: Performed By: #### C BC #### [facility] [address] [place] [address] Maame Valenzuela Lymphocytes/100 WBC (Bld) 32.8 % Normal 20.5-60.0 [facility] Comment on above: Performed By: #### C BC #### [facility] [address] [place] [address] Maame Bianca MANUAL DIFF REQ NO Normal [facility] Comment on above: Performed By: #### C BC #### [facility] [address] [place], [place] [phone] Maame Bianca MCH (RBC) [Entitic mass] 30.3 pg Normal 26.7-34.0 [facility] Comment on above: Performed By: #### C BC #### [facility] [address] [phone] Maamedenise Valenzuela MCHC (RBC) [Mass/Vol] 33.3 g/dL Normal 29.9-35.2 [facility] Comment on above: Performed By: #### C BC #### [facility] [address] [place], [place] [phone] Maamedenise Valenzuela MCV (RBC) [Entitic vol] 90.8 fL Normal 81.0-99.0 [facility] Comment on above: Performed By: #### C BC #### [facility] [address] [place], [place] [phone] Maame Bianca MONO # 0.3 103/ul Normal 0.3-0.8 [facility] Comment on above: Performed By: #### C BC #### [facility] [address] [place], [place] [phone] Maame Bianca Monocytes/100 WBC (Bld) 6.5 % Normal 1.7-12.0 [facility] Comment on above: Performed By: #### C BC #### [facility] [address] [place] [address] Maame Bianca NEUT # 3.0 103/ul Normal 1.4-6.5 [facility] Comment on above: Performed By: #### C BC #### [facility] [address] [place], [place] [phone] Maame Bianca Neutrophils/100 WBC (Bld) 59.1 % Normal 43.0-75.0 [facility] Comment on above: Performed By: #### C BC #### [facility] [address] [place], [place] [phone] Maame Bianca Platelet mean volume (Bld) [Entitic vol] 9.4 fL Critically low 9.5-13.5 [facility] Comment on above: Performed By: #### C BC #### [facility] [address] [place], [place] [phone] Maame Bianca PLT 210 103/ul Normal 150-450 [facility] Comment on above: Performed By: #### C BC #### [facility] [address] [place], [place] [phone] Maame Bianca RBC 4.79 106/ul Normal 4.20-5.40 [facility] Comment on above: Performed By: #### C BC #### [facility] [address] [place], [place] [address] Maame Valenzuela WBC 5.1 103/ul Normal 4.0-11.0 [facility] Comment on above: Performed By: #### C BC #### [facility] [address] [place], [place] [address] HEAD WO CONon 09-20-2020 [...] foramen magnum is incompletely included in the [id number]. IMPRESSION: 1. No acute intracranial hemorrhage or [...] ARVIND CONTRERAS Date: 2020-09-20 08:16 Normal [facility] CTA CHEST WO W CONon 020 [...] KYAW STATON Date: 2020-09-20 09:11 Normal [facility] D-DIMERon 09-20-2020 D-DIMER COMMENTS SEE BELOW Normal [facility] Comment on above: Result Comment: Incr eases [...] By: #### P TT, DDIM, PT #### [facility] [address] [address] Maame Valenzuela Fibrin D-dimer FEU IA (Bld) [Mass/Vol] 0.94 ug/mL Critically high 0.19-0.50 [facility] Comment on above: Result Comment: Test repeated. Critical value verified. Performed By: #### P TT, DDIM, PT #### [facility] [address] [phone] Maamedenise Beattyen PROF 14(COMP METB)on 020 Albumin [Mass/Vol] 3.6 g/dL Normal 3.5-5.0 [facility] Comment on above: Performed By: #### T ROP, BNP, CMP, TSH #### [facility] [address] [phone] Maame Bianca Albumin/Globulin [Mass ratio] 0.9 {ratio} Normal [facility] Comment on above: Performed By: #### T ROP, BNP, CMP, TSH #### [facility] [address] [address] Maame Bianca ALP [Catalytic activity/Vol] 92 U/L Normal 38-126 [facility] Comment on above: Performed By: #### T ROP, BNP, CMP, TSH #### [facility] [address] [place] [address] Maame Bianca ALT [Catalytic activity/Vol] 33 U/L Normal 9-52 [facility] Comment on above: Performed By: #### T ROP, BNP, CMP, TSH #### [facility] [address] [place], [place] [address] Maame Bianca Anion gap [Moles/Vol] 13.1 mmol/L Normal [facility] Comment on above: Performed By: #### T ROP, BNP, CMP, TSH #### [facility] [address] [place], [place] [address] Maame Bianca AST [Catalytic activity/Vol] 21 U/L Normal 14-36 [facility] Comment on above: Performed By: #### T ROP, BNP, CMP, TSH #### [facility] [address] [place], [place] [address] Maame Bianca Bilirubin [Mass/Vol] 0.9 mg/dL Normal 0.2-1.3 [facility] Comment on above: Performed By: #### T ROP, BNP, CMP, TSH #### [facility] [address] [place], [place] [address] Maame Bianca Calcium [Mass/Vol] 8.7 mg/dL Normal 8.4-10.2 [facility] Comment on above: Performed By: #### T ROP, BNP, CMP, TSH #### [facility] [address] [phone] Maame Bianca Chloride [Moles/Vol] 101 mmol/L Normal 98-107 [facility] Comment on above: Performed By: #### T ROP, BNP, CMP, TSH #### [facility] [address] [phone] Maame Bianca CO2 [Moles/Vol] 29.6 mmol/L Normal 22.0-30.0 [facility] Comment on above: Performed By: #### T ROP, BNP, CMP, TSH #### [facility] [address] [place] [address] Maame Bianca Creatinine [Mass/Vol] 0.69 mg/dL Normal 0.52-1.04 [facility] Comment on above: Performed By: #### T ROP, BNP, CMP, TSH #### [facility] [address] [place] [address] Maame Bianca EGFR-AF IRANIAN >60 Normal >=60 [facility] Comment on above: Performed By: #### T ROP, BNP, CMP, TSH #### [facility] [address] [place] [address] Maame Bianca EGFR-NON AF IRANIAN >60 Normal >=60 [facility] Comment on above: Performed By: #### T ROP, BNP, CMP, TSH #### [facility] [address] [place] [address] Maame Bianca Globulin (S) [Mass/Vol] 3.9 g/dL Normal [facility] Comment on above: Performed By: #### T ROP, BNP, CMP, TSH #### [facility] [address] [place], [place] [address] Maame Bianca Glucose [Mass/Vol] 189 mg/dL Critically high 74-106 [facility] Comment on above: Performed By: #### T ROP, BNP, CMP, TSH #### [facility] [address] [place] [address] Maame Bianca Potassium [Moles/Vol] 3.7 mmol/L Normal 3.4-5.0 [facility] Comment on above: Performed By: #### T ROP, BNP, CMP, TSH #### [facility] [address] [place] [address] Maame Bianca Protein [Mass/Vol] 7.5 g/dL Normal 6.1-8.2 [facility] Comment on above: Performed By: #### T ROP, BNP, CMP, TSH #### [facility] [address] [place] [address] Maame Bianca Sodium [Moles/Vol] 140 mmol/L Normal 137-145 [facility] Comment on above: Performed By: #### T ROP, BNP, CMP, TSH #### [facility] [address] [place] [address] Maame Bianca Urea nitrogen [Mass/Vol] 9.0 mg/dL Normal 7.0-17.0 [facility] Comment on above: Performed By: #### T ROP, BNP, CMP, TSH #### [facility] [address] [place] [address] Maame Bianca Urea nitrogen/Creatinin e [Mass ratio] 13.0 mg/mg Normal [facility] Comment on above: Performed By: #### T ROP, BNP, CMP, TSH #### [facility] [address] [place] [address] Maame Bianca PROTIMEon 09-20-2020 INR Coag (PPP) [Relative time] 0.96 {INR} Normal [facility] Comment on above: Performed By: #### P TT, DDIM, PT #### [facility] [address] [place] [address] Maame Bianca INR GUIDELINES SEE BELOW Normal [facility] Comment on above: Result Comment: RACHEL RED INR: 2.0 - 3.0 CONDITIONS NOT LISTED BELOW 2.5 - 3.5 FOR PROSTHETIC HEART VALVE REPLACEMENT 2.5 - 3.5 RECURRENT THROMBOSIS Performed By: #### P TT, DDIM, PT #### [facility] [address] [place] [address] Maame Bianca PT Coag (PPP) [Time] 10.2 s Normal 9.0-11.6 [facility] Comment on above: Performed By: #### P TT, DDIM, PT #### [facility] [address] [place] [address] Maame Valenzuela PT NORMAL PLEASE NOTE: NORMAL RANGE CHANGE 08-03-2014 DUE TO REAGENT LOT CHANGE Normal [facility] Comment on above: Performed By: #### P TT, DDIM, PT #### [facility] [address] [place] [address] Maame Valenzuela PTTon 09-20-2020 aPTT Coag (Bld) [Time] 27.1 s Normal 22.3-36.2 [facility] Comment on above: Performed By: #### P TT, DDIM, PT #### [facility] [address] [place] [address] Maame Valenzuela PTT NORMAL PLEASE NOTE: NORMAL RANGE CHANGE 10-10-2015 DUE TO REAGENT LOT CHANGE Normal [facility] Comment on above: Performed By: #### P TT, DDIM, PT #### [facility] [address] [place] [address] Maame Valenzuela Rapid Covid-19 PCRon 020 uniRow LDT Info SEE BELOW Normal [facility] Comment on above: Result Comment: This test is not yet approved or cleared by the [place] Food and Drug Administration (FDA) . This test was developed by [employer], [facility]. The performance characteristics of this test were validated by [facility]. The results are not intended to be used as the sole means for clinical diagnosis or patient management decisions. [facility] is authorized under Clinical Laboratory Improvement Amendments (CLIA) to perform high-complexity testing. When diagnostic testing is negative, the possibility of a false negative should be considered in the context of a patients recent exposures and the presence of clinical signs and symptoms consistent with SARS-CoV-2. Performed By: #### P TT, DDIM, PT #### [facility] [address] [place] [address] Maame Valenzuela SARS-CoV-2 (COVID-19) RNA DERECK+probe Ql (Unsp spec) Detected Invalid Interpretation Code NOT DETECTED [facility] Comment on above: Result Comment: This test is not yet approved or cleared by the [place] Food and Drug Administration (FDA). This test was developed by [employer], [facility]. The performance characteristics of this test were validated by [facility]. The results are not intended to be used as the sole means for clinical diagnosis or patient management decisions. [facility] is authorized under Clinical Laboratory Improvement Amendments (CLIA) to perform high-complexity testing. Performed By: #### P TT, DDIM, PT #### [facility] [address] [place] [address] TROPONIN - Ion 09-20-2020 TROP <0.012 Normal <=0.034 [facility] Comment on above: Performed By: #### P TT, DDIM, PT #### [facility] [address] [place] [address] Maame Bianca TROPONIN RANGE SEE BELOW Normal [facility] Comment on above: Result Comment: <0.0 34 ng/ml NEGATIVE 0.034-0.119 INDETERMINATE 0.120 AMI CUT OFF Performed By: #### P TT, DDIM, PT #### [facility] [address] [place] [address] Maame Valenzuela TSHon 09-20-2020 TSH 8.152 uIU/mL Critically high 0.470-4.680 [facility] Comment on above: Performed By: #### T ROP, BNP, CMP, TSH #### [facility] [address] [place], [place] [address] TSH RANGE SEE BELOW Normal [facility] Comment on above: Result Comment: <0.3 4 UIU/ml HYPERTHYROID 0.34-5.60 UIU/ml EUTHYROID >5.60 UIU/ml HYPOTHYROID Performed By: #### T ROP, BNP, CMP, TSH #### [facility] [address] [place] [address] Maame Bianca US TUSHAR DOP LEG LTon [...] by: KYAW STATON Date: 2020-09-20 09:50 Normal [facility] XR CHEST 1 Von 09-20-2020 XR [...] by: JASMINE WILKINSON Date: 2020-09-20 08:09 Normal [facility] Encounters Encounter Date Encounter Type Care Provider Facility Start: 01-31-2025 End: 01-31-2025 Emergency department patient visit NO PCP NO PCP [facility] Start: 10-20-2024 End: 10-20-2024 Emergency department patient visit NO PCP NO PCP [facility] Start: 09-20-2020 End: 09-20-[address] JASMINE WILKINSON Facility: Start: 02-09-2019 End: 02-09-2019 ambulatory Priya Thompson TOW FEEDER-C Facility:[facility] Payers Date Payer Category Payer Private Health Insurance [id number] 2018 Self-pay ABC 2018 Private Health Insurance [id number] 1970 Unknown [id number] 1970 Unknown [id number] 1970 Unknown [id number] 1959 Private Health Insurance [id number] Summary Purpose Family History No Family History Records FoundNo Family History Records FoundNo Family History Records Found Advance Directives No Advanced Directives Records FoundNo Advanced Directives Records FoundNo Advanced Directives Records Found Additional Source Comments INFORMATION SOURCE (unrecogn ized section and content) DATE CREATED AUTHOR 03/08/2021 [facility] DATE CREATED AUTHOR AUTHOR'S ORGANIZ ATION 08/27/2024 [facility] DATE CREATED AUTHOR AUTHOR'S ORGANIZ ATION 02/03/2025 [facility] FOR RECORDS PERTAINING TO PATIENTS WHO [...] BE BASED ON THE PRIMARY CLINICAL RECORDS. [facility] [employer] [facility]. provides no warranty or guarantee of the accuracy or completeness of information in this document.
[2025-07-11 12:42] LABS: Hematocrit 39.9 % (36.0-48.0); Hemoglobin 13.7 g/dL (12.0-16.0); Immature Granulocytes Abs Auto 0.02 10^3/uL (0.00-0.03); Immature Granulocytes Pct Auto 0.3 % (0.0-0.5); Lymphocytes Absolute Auto 2.9 10^3/uL (1.2-3.8); Mean Corpuscular HGB Conc 34.3 g/dL (29.9-35.2); Mean Corpuscular Hemoglobin 30.7 pg (26.7-34.0); Mean Corpuscular Volume 89.5 fL (81.0-99.0); Platelet Count 271 10^3/uL (150-450); Red Blood Count 4.46 10^6/uL (4.20-5.40); White Blood Count 7.2 10^3/uL (4.0-11.0)
[2025-07-11 13:10] LABS: Alanine Aminotransferase 22 U/L (14-59); Albumin Globulin Ratio 1.1; Albumin Level 3.8 g/dL (3.4-5.0); Alkaline Phosphatase 79 U/L (46-116); Anion Gap 12.0; Aspartate Amino Transferase 11 U/L (15-37); Blood Urea Nitrogen 12.0 mg/dL (7.0-18.0); Calcium 8.9 mg/dL (8.5-10.1); Carbon Dioxide 29.8 mmol/L (21.0-32.0); Chloride 104 mmol/L (98-107); Estimated GFR (African America >60 (>=60 mL/min/1.73m^2); Estimated GFR (Non-African Ame >60 (>=60 mL/min/1.73m^2); Free T3 2.48 pg/mL (2.18-3.98); Globulin 3.5 g/dL; Glucose 123 mg/dL (74-106); Potassium 4.8 mmol/L (3.5-5.1); Sodium 141 mmol/L (136-145); Thyroid Stimulating Hormone 7.628 uIU/mL (0.358-3.740); Total Protein 7.3 g/dL (6.4-8.2)
== END 2025-07-11 12:16 | disposition home or self-care (01) ==
LOC: LAB 12:17
PROVIDERS: PCP Family Medicine; Visit Provider Family Medicine
DX: R53.83 Other fatigue (principal)
CPT/HCPCS: 36415; 80053; 82533; 84436; 84443; 84481; 85025